=== PATIENT | male | born 1965 | race Hispanic/Latino ===

== ENCOUNTER 2017-11-03 10:35 | Inpatient (IN) | payer BC ==
[2017-11-03 10:58] VITALS: BMI 39.9
--- NOTE | 2017-11-03 11:06 | ED PDOC ---
Arrival/HPI - General Time Seen by Provider: 11/03/17 10:56 Historian: Patient, Spouse - History of Present Illness Narrative History of Present Illness (Text): 11/03/17 11:02 you were treated in the ED today for your defibrillator going off 7 times today otherwise without any nausea/vomiting/headache/dizziness/difficulty breathing/ chest pain/abdomen pain/numbness/tingling/loss of limb function/pain with urination. Time/Duration: Other (today) Symptom Course: Resolved Quality: Aching Severity Level: 2 Context: Home Past Medical History - Provider Review Nursing Documentation Reviewed: Yes - Travel History Have you recently traveled outside [place] w/in the past 3 mons?: No Family/Social History - Physician Review Nursing Documentation Reviewed: Yes Family/Social History: No Known Family HX Allergies/Home Meds Allergies/Adverse Reactions: Allergies Sulfa (Sulfonamide Antibiotics) Allergy (Verified 11/03/17 10:58) ITCHING Review of Systems - Physician Review All systems were reviewed & negative as marked: Yes - Review of Systems Respiratory: absent: SOB Cardiovascular: absent: Chest Pain Gastrointestinal: absent: Abdominal Pain, Nausea, Vomiting Genitourinary Male: absent: Dysuria Neurological: absent: Headache, Dizziness, Focal Weakness Physical Exam Vital Signs Reviewed: Yes Vital Signs Temp Pulse Resp BP Pulse Ox 11/03/17 11:54 101.9 F H 11/03/17 10:43 97.3 F L 148 H 22 109/52 L 88 L Temperature: Afebrile Blood Pressure: Hypotensive Pulse: Tachycardic Respiratory Rate: Normal Appearance: Positive for: Well-Appearing, Non-Toxic, Comfortable Pain Distress: None Mental Status: Positive for: Alert and Oriented X 3 - Systems Exam Head: Present: Atraumatic, Normocephalic Pupils: Present: PERRL Extroacular Muscles: Present: EOMI Conjunctiva: Present: Normal Mouth: Present: Moist Mucous Membranes Neck: Present: Normal Range of Motion Respiratory/Chest: Present: Clear to Auscultation, Good Air Exchange. No: Respiratory Distress, Accessory Muscle Use Cardiovascular: Present: Regular Rate and Rhythm, Normal S1, S2. No: Murmurs Abdomen: Present: Normal Bowel Sounds. No: Tenderness, Distention, Peritoneal Signs Back: Present: Normal Inspection, Other (no sign of spinal tenderness or erythema/fluctuance/crepitus.) Upper Extremity: Present: Normal Inspection. No: Cyanosis, Edema Lower Extremity: Present: Normal Inspection. No: Edema Neurological: Present: GCS=15, CN II-XII Intact, Speech Normal Skin: Present: Warm, Dry, Normal Color. No: Rashes Psychiatric: Present: Alert, Oriented x 3, Normal Insight, Normal Concentration Medical Decision Making ED Course and Treatment: 11/03/17 11:02 you were treated in the ED today for your defibrillator going off 7 times today otherwise without any nausea/vomiting/headache/dizziness/difficulty breathing/ chest pain/abdomen pain/numbness/tingling/loss of limb function/pain with urination. You were otherwise breathing easily, pink/moist lips, good strength/ sensation, alert/oriented, walking easily, clear lungs, no abdomen tenderness, no fever temp 97.3, heart rate 148, stable breathing rate 22, mild low oxygen level 88% room air, stable blood pressure 109/52 which we recommend repeat in 2- 3 days primary care office to determine further treatment, you have blood tests no infection count 6.2, stable blood level hemoglobin 11/platelets 105, heart blood test 2.92, urine test no acute sign of infection, lumbar spine ct disc disease and degenerative changes, chest xray no active disease, ECG sinus tachycardia at 148 BPM, ivf, zosyn, tylenol done in the ED. EKG shows sinus tachycardia at 148 BPM. Interpreted by me. Report Date : 11/03/2017 12:19:34 PROCEDURE: CT Lumbar Spine without contrast Dictator : Myra Santamaria MD IMPRESSION: Mild grade 1 anterior spondylolisthesis of L4 relative to L5 noted. Moderate degenerative changes associated with multilevel posterior osteophyte disc bulge complex. Moderate size disc protrusion at L4-L5 associated with posterior ligament and facet joint hypertrophy which resulting in moderate spinal and neural foraminal narrowing. If clinically warranted and if not contraindicated further assessment by MRI may be obtained. Report Date : 11/03/2017 12:45:28 PROCEDURE: CHEST RADIOGRAPH, 1 VIEW Dictator : Abdias Bullard MD IMPRESSION: No active disease. 11/03/17 13:37 Patient was given Aspirin. temp 101.9 sepsis code, ivf, zosyn. 11/03/17 13:58 11/03/17 14:00 11/03/17 14:02 11/03/17 14:04 11/03/17 14:14 d/w Dr. matute and will admit. d/w Dr. Salinas cardiology who stated admit to icu, contact electrophysiology for ppm/defibrillator interrogation. 11/03/17 14:17 Reassessment Condition: Re-examined, Unchanged - Lab Interpretations Lab Results: 11/03/17 12:15 11/03/17 12:15 Lab Results 11/03/17 12:15: pO2 43, VBG pH 7.39, VBG pCO2 37.0 L, VBG HCO3 22.4, VBG Total CO2 23.5, VBG O2 Sat (Calc) 82.7 H, VBG Base Excess -2.2 L, VBG Potassium 4.4, Sodium 132.0, Chloride 100.0, Glucose 318 H, Lactate 2.6 H, FiO2 21.0, Venous Blood Potassium 4.4 11/03/17 12:15: Influenza Typ A,B (EIA) Negative for flu a/b 11/03/17 12:15: Sodium 134, Chloride 101, Potassium 4.2, Carbon Dioxide 20 L, Anion Gap 17, BUN 32 H, Creatinine 1.4, Est GFR ( Amer) > 60, Est GFR ( Non-Af Amer) 53, Random Glucose 299 H, Calcium 9.3, Magnesium 2.6 H, Total Bilirubin 0.9, AST 72 H, ALT 79 H, Alkaline Phosphatase 64, Lactate Dehydrogenase 484, Total Creatine Kinase 95, Troponin I 2.92 H*, Total Protein 6.7, Albumin 3.6, Globulin 3.1, Albumin/Globulin Ratio 1.2 11/03/17 12:15: Urine Color Yellow, Urine Appearance Clear, Urine pH 6.5, Ur Specific [place] 1.010, Urine Protein 30 H, Urine Glucose (UA) >=1000, Urine Ketones Negative, Urine Blood Large H, Urine Nitrate Negative, Urine Bilirubin Negative, Urine Urobilinogen 0.2, Ur Leukocyte Esterase Negative, Urine RBC 10 - 15, Urine WBC 0 - 2, Ur Epithelial Cells None, Urine Bacteria Many, Urine Other Uyeast 11/03/17 12:15: PT 13.9 H, INR 1.20 H, APTT 35.5 11/03/17 12:15: WBC 6.2, RBC 5.74, Hgb 11.6 L, Hct 35.9 L, MCV 62.5 L, MCH 20.2 L, MCHC 32.3, RDW 18.0 H, Plt Count 105 L, Gran % 90.2 H, Lymph % (Auto) 4.6 L, Green % (Auto) 5.0, Eos % (Auto) 0.0 L, Baso % (Auto) 0.2, Gran # 5.63, Lymph # ( Auto) 0.3 L, Green # (Auto) 0.3, Eos # (Auto) 0.0, Baso # (Auto) 0.01, Neutrophils % (Manual) 91 H, Lymphocytes % (Manual) 5 L, Monocytes % (Manual) 4 , Platelet Evaluation Normal, Anisocytosis (manual) 1+, Microcytosis (manual) 2+ I have reviewed the lab results: Yes - RAD Interpretation Radiology Orders: 11/03/17 11:03 LUMBAR SPINE W/O CONTRAST [CT] Stat 11/03/17 11:04 CHEST ONE VIEW [RAD] Stat Shipping Hand: Radiologist (see mdm) - EKG Interpretation Interpreted by ED Physician: Yes (sinus tachycardia) Type: 12 lead EKG - Medication Orders Current Medication Orders: Discontinued Medications Acetaminophen (Tylenol 325mg Tab) 975 mg PO STAT STA Stop: 11/03/17 13:25 Last Admin: 11/03/17 13:51 Dose: 975 mg Aspirin (Aspirin Chewable) 324 mg PO STAT STA Stop: 11/03/17 13:38 Last Admin: 11/03/17 13:51 Dose: 324 mg Piperacillin Sod/Tazobactam Sod (Zosyn 4.5 Gm In Ns 100ml) 4.5 gm in 100 mls @ 200 mls/hr IVPB STAT STA PRN Reason: Protocol Stop: 11/03/17 13:54 Last Admin: 11/03/17 13:52 Dose: 200 mls/hr eMAR Start Stop Document 11/03/17 13:52 HI (Rec: 11/03/17 13:52 HI [facility] [id number]) Intravenous Solution Start Date 11/03/17 Start Time 13:52 Sodium Chloride (Sodium Chloride 0.9%) 1,000 mls @ 999 mls/hr IV .Q1H1M STA Stop: 11/03/17 14:25 Last Admin: 11/03/17 13:52 Dose: 999 mls/hr eMAR Start Stop Document 11/03/17 13:52 HI (Rec: 11/03/17 13:52 HI [facility] [id number]) Intravenous Solution Start Date 11/03/17 Start Time 13:52 Disposition/Present on Arrival - Present on Arrival Any Indicators Present on Arrival: No - Disposition Have Diagnosis and Disposition been Completed?: Yes Diagnosis: Fever Disposition: HOSPITALIZED Disposition Time: 14:26 Patient Plan: ICU Condition: SERIOUS
--- NOTE | 2017-11-03 12:21 | CT ---
PROCEDURE: CT Lumbar Spine without contrast HISTORY: 52M, lumbar injection with pain/fever COMPARISON: Comparison is made with the previous study dated 10/14/2012 TECHNIQUE: Axial computed tomography images were obtained of the lumbar spine without the use of intravenous contrast. Coronal and sagittal reformatted images were created and reviewed. Radiation dose: Total exam DLP = 1828.71 mGy-cm. This CT exam was performed using one or more of the following dose reduction techniques: Automated exposure control, adjustment of the mA and/or kV according to patient size, and/or use of iterative reconstruction technique. FINDINGS: VERTEBRAE: No evidence of acute fracture or destructive bony lesion. There is grade 1 approximately 5 millimeter anterior spondylolisthesis of L4 relative to L5. DISCS/SPINAL CANAL/NEURAL FORAMINA: L1-2: Small posterior osteophyte disc bulge complex associated with mild posterior ligament hypertrophy which resulting in mild spinal stenosis. L2-3: Posterior osteophyte and ligament calcification noted associated with mild posterior ligament and facet joint hypertrophy which resulting in mild spinal stenosis. There is mild bilateral neural foraminal narrowing right more than left. L3-4: Posterior osteophyte disc bulge complex is noted associated with posterior ligament hypertrophy which resulted mild spinal stenosis. L4-5: Moderate size ankle for disc protrusion associated with significant posterior ligament and facet joint hypertrophy which resulting in moderate spinal and neural foraminal narrowing. L5-S1: Small central disc protrusion associated with posterior ligament hypertrophy which resulting in mild spinal stenosis. PARASPINAL SOFT TISSUES: Unremarkable. OTHER FINDINGS: None. IMPRESSION: Mild grade 1 anterior spondylolisthesis of L4 relative to L5 noted. Moderate degenerative changes associated with multilevel posterior osteophyte disc bulge complex. Moderate size disc protrusion at L4-L5 associated with posterior ligament and facet joint hypertrophy which resulting in moderate spinal and neural foraminal narrowing. If clinically warranted and if not contraindicated further assessment by MRI may be obtained.
[2017-11-03 12:38] LABS: BASO # 0.01 K/mm3 (0.0-2.0); BASO % 0.2 % (0.0-3.0); GRAN # 5.63 (1.4-6.5); GRAN % 90.2 % (50.0-68.0); HEMOGLOBIN 11.6 g/dL (14.0-18.0); LYMPH # 0.3 (1.2-3.4); LYMPH % 4.6 % (22.0-35.0); MEAN CELL VOLUME 62.5 fl (80.0-105.0); MEAN CORPUSCULAR HEMOGLOBIN 20.2 pg (25.0-35.0); MEAN CORPUSCULAR HGB CONC 32.3 g/dl (31.0-37.0); MONO # 0.3 (0.1-0.6); PLATELET COUNT 105 10^3/uL (120.0-450.0); RBC 5.74 10^6/uL (3.5-6.1); VENOUS BLOOD GAS BASE EXCESS -2.2 mmol/L (0.0-2.0); VENOUS BLOOD GAS PO2 43 mm/Hg (30-55); VENOUS BLOOD PH 7.39 (7.32-7.43); WHITE BLOOD COUNT 6.2 10^3/ul (4.5-11.0)
[2017-11-03 12:39] LABS: PH,URINE 6.5 (4.7-8.0); URINE BILIRUBIN NEGATIVE (NEGATIVE); URINE BLOOD LARGE (NEGATIVE); URINE GLUCOSE (UA) >=1000 mg/dL (NEGATIVE); URINE LEUKOCYTE ESTERASE NEGATIVE Leu/uL (NEGATIVE); URINE NITRATE NEGATIVE (NEGATIVE); URINE PROTEIN 30 mg/dL (<30 mg/dL); URINE UROBILINOGEN 0.2 E.U./dL (<1 E.U./dL)
[2017-11-03 12:41] LABS: URINE APPEARANCE CLEAR (CLEAR); URINE COLOR YELLOW (YELLOW)
--- NOTE | 2017-11-03 12:47 | RAD ---
PROCEDURE: CHEST RADIOGRAPH, 1 VIEW HISTORY: 52yoM, defibrilator firing COMPARISON: None available. FINDINGS: LUNGS: Clear. PLEURA: No pneumothorax or pleural fluid seen. CARDIOVASCULAR: Mild cardiomegaly. Pacemaker OSSEOUS STRUCTURES: No significant abnormalities. VISUALIZED UPPER ABDOMEN: Normal. OTHER FINDINGS: None. IMPRESSION: No active disease.
[2017-11-03 12:48] LABS: ALB/GLOB RATIO 1.2 (1.1-1.8); ALBUMIN 3.6 g/dL (3.0-4.8); ALT/SGPT 79 U/L (7-56); AST/SGOT 72 U/L (17-59); BLOOD UREA NITROGEN 32 mg/dL (7-21); CALCIUM 9.3 mg/dL (8.4-10.5); GFR AFRICAN-AMERICAN > 60; GFR NON-AFRICAN AMERICAN 53; MAGNESIUM 2.6 mg/dL (1.7-2.2)
[2017-11-03 12:52] LABS: INR 1.2 (0.93-1.08); PARTIAL THROMBOPLASTIN TIME 35.5 Seconds (25.1-36.5); PROTHROMBIN TIME 13.9 SECONDS (9.4-12.5)
[2017-11-03 12:59] LABS: URINE WBC 0 - 2 /hpf (0-6)
[2017-11-03 13:00] LABS: URINE BACTERIA MANY (NEG)
[2017-11-03 13:19] LABS: LYMPHOCYTE 5 % (22.0-35.0); MONOCYTE 4 % (1.0-6.0); NEUTROPHIL 91 % (50.0-70.0); PLATELET ESTIMATE NORMAL (NORMAL)
[2017-11-03 13:20] LABS: ANISOCYTOSIS 1+; MICROCYTOSIS 2+
[2017-11-03 13:23] LABS: TROPONIN I 2.92 ng/mL
[2017-11-03] MEDS ORDERED: Piperacill/Tazo 4.5gm in NS 4.5 GM/100 ML BAG IVPB STA (13:25)
[2017-11-03] MEDS ORDERED: Sodium Chloride 0.9% 1,000 ML IV STA (13:25)
--- NOTE | 2017-11-03 15:06 | CP.PCM.CON ---
History of Present Illness - History of Present Illness History of Present Illness: Critical Consult Note HPI: Patient is 52yo male with PMhx of obesity, DM, HTN, Cardiomyopathy EF 40% s/p AICD ([place]), presents with AICD shock. Pt reports he was walking at home when all of sudden he felt an ICD shock follow by 7 more shocks. Pt denies preceding chest pain, sob, palpitations, CEDENO, dizziness. Pt endorses fever, since Friday, denies sick contacts, cough, sob, cp, N/V/D. No other constitutional symptoms. PMHx as above PSHx as above Allergies NKDA Meds as per EMR ROS as above FHx NC Review of Systems - Review of Systems Review of Systems: as per HPI Past Patient History - Past Social History Smoking Status: Never Smoked - CARDIAC Hx Pacemaker: Yes (2008) - PULMONARY Hx Sleep Apnea: Yes - ENDOCRINE/METABOLIC Hx Diabetes Mellitus Type 2: Yes - PSYCHIATRIC Hx Substance Use: No - SURGICAL HISTORY Hx Gastric Bypass Surgery: Yes Hx Herniorrhaphy: Yes Other/Comment: wrist surgery - ANESTHESIA Hx Anesthesia: Yes Hx Anesthesia Reactions: No Hx Malignant Hyperthermia: No Meds Allergies/Adverse Reactions: Allergies Allergy/AdvReac Type Severity Reaction Status Date / Time Sulfa (Sulfonamide Allergy ITCHING Verified 11/03/17 10:58 Antibiotics) - Medications Medications: Current Medications Sodium Chloride (Sodium Chloride 0.9%) 1,000 mls @ 100 mls/hr IV .Q10H JONG Physical Exam - Constitutional Appears: Non-toxic, No Acute Distress - Head Exam Head Exam: NORMAL INSPECTION - Eye Exam Eye Exam: Normal appearance - ENT Exam ENT Exam: Mucous Membranes Moist - Respiratory Exam Respiratory Exam: Clear to Auscultation Bilateral, NORMAL BREATHING PATTERN - Cardiovascular Exam Cardiovascular Exam: REGULAR RHYTHM, +S1, +S2 - GI/Abdominal Exam GI & Abdominal Exam: Normal Bowel Sounds, Soft - Extremities Exam Extremities exam: Positive for: normal inspection - Neurological Exam Neurological exam: Alert, Oriented x3 - Psychiatric Exam Psychiatric exam: Anxious - Skin Skin Exam: Normal Color, Warm Results - Vital Signs Recent Vital Signs: Last Vital Signs Temp 101.9 F H 11/03/17 11:54 Pulse 148 H 11/03/17 10:43 Resp 22 11/03/17 10:43 BP 109/52 L 11/03/17 10:43 Pulse Ox 88 L 11/03/17 10:43 - Labs Result Diagrams: 11/03/17 12:15 11/03/17 12:15 Labs: Laboratory Results - last 24 hr 11/03/17 11/03/17 11/03/17 12:15 12:15 12:15 WBC 6.2 RBC 5.74 Hgb 11.6 L Hct 35.9 L MCV 62.5 L MCH 20.2 L MCHC 32.3 RDW 18.0 H Plt Count 105 L Gran % 90.2 H Lymph % (Auto) 4.6 L Fisher % (Auto) 5.0 Eos % (Auto) 0.0 L Baso % (Auto) 0.2 Gran # 5.63 Lymph # (Auto) 0.3 L Fisher # (Auto) 0.3 Eos # (Auto) 0.0 Baso # (Auto) 0.01 Neutrophils % (Manual) 91 H Lymphocytes % (Manual) 5 L Monocytes % (Manual) 4 Platelet Evaluation Normal Anisocytosis (manual) 1+ Microcytosis (manual) 2+ PT 13.9 H INR 1.20 H APTT 35.5 pO2 VBG pH VBG pCO2 VBG HCO3 VBG Total CO2 VBG O2 Sat (Calc) VBG Base Excess VBG Potassium Sodium Chloride Glucose Lactate FiO2 Potassium Carbon Dioxide Anion Gap BUN Creatinine Est GFR ( Amer) Est GFR (Non-Af Amer) Random Glucose Calcium Magnesium Total Bilirubin AST ALT Alkaline Phosphatase Lactate Dehydrogenase Total Creatine Kinase Troponin I Total Protein Albumin Globulin Albumin/Globulin Ratio Venous Blood Potassium Urine Color Yellow Urine Appearance Clear Urine pH 6.5 Ur Specific [employer] [place] 1.010 Urine Protein 30 H Urine Glucose (UA) >=1000 Urine Ketones Negative Urine Blood Large H Urine Nitrate Negative Urine Bilirubin Negative Urine Urobilinogen 0.2 Ur Leukocyte Esterase Negative Urine RBC 10 - 15 Urine WBC 0 - 2 Ur Epithelial Cells None Urine Bacteria Many Urine Other Uyeast Influenza Typ A,B (EIA) 11/03/17 11/03/17 11/03/17 12:15 12:15 12:15 WBC RBC Hgb Hct MCV MCH MCHC RDW Plt Count Gran % Lymph % (Auto) Fisher % (Auto) Eos % (Auto) Baso % (Auto) Gran # Lymph # (Auto) Fisher # (Auto) Eos # (Auto) Baso # (Auto) Neutrophils % (Manual) Lymphocytes % (Manual) Monocytes % (Manual) Platelet Evaluation Anisocytosis (manual) Microcytosis (manual) PT INR APTT pO2 43 VBG pH 7.39 VBG pCO2 37.0 L VBG HCO3 22.4 VBG Total CO2 23.5 VBG O2 Sat (Calc) 82.7 H VBG Base Excess -2.2 L VBG Potassium 4.4 Sodium 134 132.0 Chloride 101 100.0 Glucose 318 H Lactate 2.6 H FiO2 21.0 Potassium 4.2 Carbon Dioxide 20 L Anion Gap 17 BUN 32 H Creatinine 1.4 Est GFR ( Amer) > 60 Est GFR (Non-Af Amer) 53 Random Glucose 299 H Calcium 9.3 Magnesium 2.6 H Total Bilirubin 0.9 AST 72 H ALT 79 H Alkaline Phosphatase 64 Lactate Dehydrogenase 484 Total Creatine Kinase 95 Troponin I 2.92 H* Total Protein 6.7 Albumin 3.6 Globulin 3.1 Albumin/Globulin Ratio 1.2 Venous Blood Potassium 4.4 Urine Color Urine Appearance Urine pH Ur Specific [employer] [place] Urine Protein Urine Glucose (UA) Urine Ketones Urine Blood Urine Nitrate Urine Bilirubin Urine Urobilinogen Ur Leukocyte Esterase Urine RBC Urine WBC Ur Epithelial Cells Urine Bacteria Urine Other Influenza Typ A,B (EIA) Negative for flu a/b Assessment & Plan - Assessment and Plan (Free Text) Assessment: 52yo male with AICD shocks and fever AICD shock Fever GUSTAVO HTN CM, EF 40% Obesity - currently afebrile, HD stable, comfortable in NAD, in NSR, no further shocks while in hospital - Denies CP, SOB, Dysuria, N/V/D, abd pain, cough - Elevated troponin possibly due to AICD shocks Recommend: - supp o2 as needed - camacho culture, check procal, UCx, BCx - Rocephin, Azithro - resume home meds - defer A/C to cardiology, elevated troponin - repeat cardiac enzymes - EP consult, AICD interrogation - ECHO - CPAP at night PS 11 - GI ppx - DVT ppx - Admit to MICU stable
[2017-11-03] MEDS ORDERED: cefTRIAXone 1 gm 1 GM/100 ML BAG IVPB SCH (15:30)
[2017-11-03 15:50] LABS: VENOUS BLOOD GAS PO2 47 mm/Hg (30-55); VENOUS BLOOD PH 7.36 (7.32-7.43)
--- NOTE | 2017-11-03 16:33 | CARD ---
APPROVED REPORT EKG Measurement Heart [id number] <Conclusion> Sinus tachycardia Otherwise normal ECG
[2017-11-03] MEDS: Sodium Chloride 0.9% 1,000 ML IV SCH (17:00)
[2017-11-03] MEDS: Azithromycin 500MG/NS 250ml 500 MG/250 ML BAG IVPB SCH (17:58)
[2017-11-03] MEDS: Oxycodone/Acetaminophen 5/325 mg Tab PO PRN (18:59)
[2017-11-03 19:30] LABS: TROPONIN I 5.06 ng/mL
--- NOTE | 2017-11-03 21:05 | PCM.SEPTIC ---
<Barrington Garzon - Last Filed: 11/03/17 21:04> Sepsis Progress Note - Reassessment Type Date of Evaluation: 11/03/17 Time of Evaluation: 16:15 Reassessment Type: Non-invasive reassessment - Non Invasive Reassessment Were the most recent vital sign reviewed: Yes Vital Sign (Latest): Temp Pulse Resp BP Pulse Ox 99.1 F 94 H 34 H 83/50 L 95 11/03/17 15:28 11/03/17 17:53 11/03/17 16:29 11/03/17 17:53 11/03/17 16:29 Cardiovascular: Yes: Tachycardia Respiratory: Yes: Normal Breath Sounds Capillary Refill: Normal (Less than 2 sec) Skin: Normal Color <Erik Raymond - Last Filed: 11/10/17 20:53> Sepsis Progress Note - Non Invasive Reassessment Vital Sign (Latest): Temp Pulse Resp BP Pulse Ox 98.1 F 110 H 20 137/78 95 11/07/17 17:26 11/07/17 18:00 11/07/17 17:26 11/07/17 17:26 11/07/17 17:26 Type performed: Echocardiogram, Trans-esophageal Echo Was a passive leg raise performed or was a fluid challenge performed within 6 hrs of the initial fluid bolus: Yes Passive Leg Raise Result: Not Applicable Fluid Challenge performed: No
[2017-11-03] MEDS ORDERED: Pneumococcal 23-Valent Vaccine IM ONE (21:26)
[2017-11-03] MEDS ORDERED: Influenza Vaccine 60 mcg/0.5 mL SYR (4YR UP) IM ONE (21:26)
--- NOTE | 2017-11-03 21:35 | CARD ---
APPROVED REPORT EXAM: Two-dimensional and M-mode echocardiogram with Doppler and color Doppler. INDICATION VT 2D DIMENSIONS Left Atrium (2D)4.9 (1.6-4.0cm)IVSd1.3 (0.7-1.1cm) LVDd6.0 (3.9-5.9cm)PWd1.3 (0.7-1.1cm) LVEF (%)30.0 (>50%) M-Mode DIMENSIONS Aortic Root3.30 (2.2-3.7cm)Aortic Cusp Exc.1.90 (1.5-2.0cm) Aortic Valve AoV Peak Xfxxfwwf330.0cm/Tc Peak GR.6mmHg Mitral Valve MV E Zcblbuwd96.3cm/sMV A Qjitnlvm03.6cm/sE/A ratio0.8 TDI Lateral E' Peak V7.80cm/sMedial E' Peak V5.75cm/sE/Lateral E'7.0 E/Medial E'9.4 Pulmonary Valve PV Peak Sznpqyfx09.1cm/sPV Peak Grad.2mmHg Tricuspid Valve TR Peak Eekxkscz747os/sRAP [id number] Peak Gr.20mmHg [id number] LEFT VENTRICLE The Left Ventricle is mildly dilated. There is mild concentric left ventricular hypertrophy. The systolic function is severely impaired. There is global hypokinesis of the left ventricle. Transmitral Doppler flow pattern is Grade I-abnormal relaxation pattern. No left ventricle thrombus noted on this study. There is no ventricular septal defect visualized. RIGHT VENTRICLE The right ventricle is normal size. There is normal right ventricular wall thickness. There is a pacemaker lead in the right ventricle. ATRIA The left atrium is mildly dilated. The right atrium is mildly dilated. AORTIC VALVE The aortic valve is not well visualized. No aortic regurgitation is present. There is no aortic valvular stenosis. MITRAL VALVE The mitral valve is normal in structure. There is no mitral valve regurgitation noted. There is no mitral valve stenosis. TRICUSPID VALVE The tricuspid valve is normal in structure. GREAT VESSELS The aortic root is normal in size. PERICARDIAL EFFUSION There is a trace circumferential pericardial effusion. <Conclusion> The Left Ventricle is mildly dilated. There is mild concentric left ventricular hypertrophy. There is global hypokinesis of the left ventricle. Transmitral Doppler flow pattern is Grade I-abnormal relaxation pattern. No left ventricle thrombus noted on this study.
[2017-11-03] MEDS: Insulin Reg-LOW-Coverage SC SCH ×2 (21:58→22:21)
[2017-11-04 00:25] LABS: TROPONIN I 3.5 ng/mL
--- NOTE | 2017-11-04 02:33 | CON ---
DATE: CARDIOLOGY CONSULTATION REASON FOR CONSULTATION: Recurrent defibrillator discharge. HISTORY OF PRESENT ILLNESS: Patient is a 52-year-old male who has a history of nonischemic cardiomyopathy, status post ICD placement in 2008, follows with his boiler assistant operator in [place] and then in [facility]. The optometric coordinator's name is Dr. Pena. The patient had, a few days ago, a nerve block injection to lower back in outpatient facility . Patient this morning experienced at least nine discharges from the defibrillator that knocked him down. He slipped to the floor, but sustained no injury. Patient is currently feeling weak, anxious, and exhausted. Patient did report fever and chills for the past few days. Patient denies any retrosternal chest pain. According to the , the patient's ejection fraction in 2008 was 15%; however ,over time this improved to 45%. SOCIAL HISTORY: Nonsmoker. MEDICATIONS: Patient's home medications include Coreg 6.25 mg twice a day and enalapril. REVIEW OF SYSTEMS: No vomiting, diarrhea. Patient did experience fever and chills. No retrosternal chest pain. Patient did not experience syncope before discharge from the defibrillator, but he did feel weak and dizzy. PHYSICAL EXAMINATION: GENERAL: Patient is moderately obese middle-aged male who is does not appear to be in acute distress. VITAL SIGNS: Blood pressure 109/52, heart rate 148, temperature 101.9, respirations 22. HEENT: Normocephalic. CHEST: Bibasilar rhonchi and diminished breath sounds over the bases. HEART: S1, S2, regular. ABDOMEN: Soft. EXTREMITIES: 1+ pitting edema. LABORATORY DATA: Hemoglobin and hematocrit 11.6 and 35.9, white count 6.2, platelet count 105,000. SMA-7: Sodium 134, potassium 4.2, chloride 101, CO2 of 20, glucose is 299, BUN 32, creatinine 1.4. Troponin 2.92. INR is 1.2. Influenza type A and B are negative. EKG reveals sinus tachycardia with PVC at rate 142. Chest x-ray revealed cardiomegaly, scattered bilateral alveolar infiltrate. CAT scan of the lumbosacral spine revealed mild grade 1 anterior spondylolysis of L4-L5. Moderate degenerative changes associated to multilevel posterior osteophytic disk bulge complex, moderate disk protrusion at L4-L5 posterior ligament and facet joint hypertrophy, which result in moderate spinal and neural foramina narrowing. ASSESSMENT: 1. Recurrent discharge from the defibrillator, concern of recurrent tachycardia; however, rapid atrial fibrillation cannot be excluded or even sinus tachycardia or supraventricular tachycardia. 2. Mildly elevated troponin, most likely related to the recurrent frequent recent defibrillations. 3. Congestive heart failure. 4. Rule out underlying pneumonia. RECOMMENDATIONS: Continue current IV fluid. I did discuss the case with Dr. Jorge Mitchell, the boiler assistant operator who will reevaluate the patient. In the meantime, communications have been done to contact the [employer] for ICD analysis. In the meantime, the patient is being evaluated by the supervisor telephone answering service to be observed in the ICU. I will obtain bedside echocardiogram. Resume Coreg at 12.5 mg twice day, enalapril 2.5 mg once a day. Obtain urine for drug screen and two sets of blood culture. Navid Salinas MD
[2017-11-04] MEDS: Sodium Chloride 0.9% 1,000 ML IV SCH (05:57)
[2017-11-04 06:01] LABS: HEMOGLOBIN 10.5 g/dL (14.0-18.0); MEAN CORPUSCULAR HGB CONC 32.3 g/dl (31.0-37.0); PLATELET COUNT 109 10^3/uL (120.0-450.0); RBC 5.24 10^6/uL (3.5-6.1); RED CELL DISTRIBUTION WIDTH 17.8 % (11.5-14.5); WHITE BLOOD COUNT 7.6 10^3/ul (4.5-11.0)
[2017-11-04 06:06] LABS: BARBITURATES, UR NEGATIVE (NEGATIVE); BENZODIAZEPINES, UR NEGATIVE (NEGATIVE); OPIATES, UR NEGATIVE (NEGATIVE); PHENCYCLIDINE, UR NEGATIVE (NEGATIVE)
--- NOTE | 2017-11-04 06:15 | CON ---
INPATIENT ELECTROPHYSIOLOGY CONSULTATION DATE: 11/03/2017 LOCATION: The patient is seen in the ICU. REASON FOR EVALUATION: 1. Automatic implantable cardioverter-defibrillator status post shock. 2. Dilated cardiomyopathy. 3. Tachycardia. HISTORY OF PRESENT ILLNESS: Mr. Rafa Dupree is a 52-year-old male with past medical history significant for hypertension, diabetes, obesity, dilated cardiomyopathy, EF of 40%, status post single-lead [employer] AICD approximately eight years ago, who presents to [facility], status post AICD shock. The patient reports not feeling well for the last day or two with increased fever, weakness, and shivering. The patient had tried to stay in bed and rest. He did manage to get up and walk towards the bathroom at which point the patient felt as though the AICD shocked him. This was followed by repeated episodes of shock numbering 7. The patient denied any prior cardiac symptoms such as chest pain, shortness of breath, palpitation, dizziness, or lightheadedness. He follows up regularly with Dr. Pena from a defibrillator standpoint. PAST MEDICAL HISTORY: As mentioned above. Also includes obstructive sleep apnea, diabetes, history of gastric bypass surgery. PAST SURGICAL HISTORY: As mentioned above. Pacemaker in 2008. ALLERGIES: ALLERGIC TO SULFA, WHICH RESULTS IN ITCHING. MEDICATIONS AT HOME: Includes carvedilol 12.5 mg twice a day, losartan 25 mg p.o. daily, ondansetron 4 mg IV q. 4 hours p.r.n. nausea, Protonix 40 mg p.o. daily, and azithromycin 500 mg in 250 mL at 167 mL per hour. SOCIAL HISTORY: Never smoked. REVIEW OF SYSTEMS: As per that in the history of present illness. Further history is gleaned from the electronic medical records as well as from his , who is at the bedside. PHYSICAL EXAMINATION: GENERAL: In general, he is a pleasant, somewhat anxious-appearing obese male in no acute distress, able to speak in complete sentences. VITAL SIGNS: On examination, temperature is 101.9, pulse of 98, respirations of 22, blood pressure is 109/52. HEENT: Examination of his head is normocephalic and atraumatic. There is no gareth facial asymmetry. He does appear somewhat plethoric. NECK: Supple. Jugular venous distention is difficult to appreciate secondary to body habitus. CHEST: Clear to auscultation bilaterally. CARDIOVASCULAR: Regular rate and rhythm, S1 and S2. No S3 or S4. ABDOMEN: Soft, obese, and nontender. Positive bowel sounds. EXTREMITIES: No cyanosis, clubbing, or edema. NEUROLOGIC: The patient is alert and oriented x3. MUSCULOSKELETAL: The left pectoral area is notable for a well-seated submuscular AICD. Of note, the patient has multiple elaborate tattoos. LABORATORY DATA: On review of relevant lab work, the patient has a white count of 6.2 and H and H of 11.6 and 35.9. The patient also has a platelet count of 105. PT of 13.9 and INR of 1.2. Chest x-ray with findings of mild cardiomegaly. No other active disease is revealed. Echocardiogram has been done, but yet to be read. On review of the patient's device interrogation, the patient has a [employer] Current VRRF device, initially implanted by Dr. Dieter Pena. Battery life appears to be satisfactory with longevity estimated to be 1.5 years. Capture threshold in the ventricle is within normal limits. The patient initially had a VT1 zone at 134 beats per minute, and VT2 therapy is set at 176, which initially was treated with 3 rounds of ATP followed by 24 joules shock, followed by 34 joules shock, followed by 34 joules shock x2. VF zone is 206 beats per minute. The patient'sepisode started this morning, 11/03/2017 at 09:22 a.m. The patient is noted to be in a narrow complex tachycardia at approximately 136 beats per minute. The patient remains in this narrow- complex tachycardia, which is likely a physiologic sinus tachycardia over a period of 2 minutes at which point monitor's own timeout occurs. The patient undergoes VT2 therapy at which point the patient had undergone ATP therapy with little or no success. The patient then received a series of shocks, all of which did pretty much nothing for his tachycardia being that it is sinus. EKG which was done at this morning as well shows sinus tachycardia at 148 beats per minute, relatively normal Q-wave morphology, AL interval is 136 milliseconds. QRS duration is 98. There is relatively low-amplitude R waves in the limb leads, which may be secondary to body habitus. ASSESSMENT: 1. [employer] single-chamber automatic implantable cardioverter-defibrillator status post shock following time-out of narrow-complex tachycardia in the monitor zone. The patient underwent interrogation of his device, time-out of the monitor zone has been removed; therefore, the patient will only receive therapy for tachycardia in the VT2 zone, which is initiated at 126 beats per minute. The patient remains somewhat apprehensive about getting shocked again. The patient is to follow up with Dr. Pena, his outpatient slubber frame changer. 2. Dilated cardiomyopathy, ejection fraction of 40%. A 2D echocardiogram is yet to be read. The patient should follow up with Dr. Pena. 3. Tachycardia, likely multifactorial secondary to fevers, likely underlying infection, as well as some degree of anemia. The patient will be treated for those following reasons. 4. Anemia, which will be addressed by the Primary/Critical Care Team. Thank you for allowing me to participate in the care of your patient. Please do not hesitate to call for any questions in regards to his care. Jorge Mitchell MD [id number]
[2017-11-04 06:26] LABS: INR 1.08 (0.93-1.08); PROTHROMBIN TIME 12.4 SECONDS (9.4-12.5)
--- NOTE | 2017-11-04 07:09 | CP.CCUPN ---
<Zoey Jiménez - Last Filed: 11/04/17 10:49> CCU Subjective - Physician Review Subjective (Free Text): 11/04/17 09:49 Patient was admitted overnight after being shocked by his ACID 10 times. Patient 's AICD was interrogated in the ED, and the rate was adjusted. Patient was also seen by the fig caprifier. Overnight there were no events. No shock since admission. Patient this AM, denies chest pain, sob, nausea, vomiting or diarrhea. c/o right sided flank pain, denies dysurea. Patient admits to chills, and fever, had tmax of 100.8 this morning. Critical Care Time Spent (in minutes): 45 CCU Objective - Vital Signs / Intake & Output Vital Signs (Last 4 hours): Vital Signs Pulse Resp BP Pulse Ox 11/04/17 06:30 95 H 19 88 L 11/04/17 06:20 91 H 20 89 L 11/04/17 06:10 93 H 22 88 L 11/04/17 06:00 93 H 22 95/54 L 90 L 11/04/17 05:50 100 H 28 H 90 L 11/04/17 05:40 93 H 17 91 L 11/04/17 05:30 98 H 92 L 11/04/17 05:20 98 H 25 H 91 L 11/04/17 05:10 98 H 22 91 L 11/04/17 05:00 94 H 22 90/54 L 90 L 11/04/17 04:50 94 H 21 89 L 11/04/17 04:40 96 H 25 H 90 L 11/04/17 04:30 96 H 22 91 L 11/04/17 04:20 94 H 22 89 L 11/04/17 04:10 91 H 22 92 L 11/04/17 04:00 89 17 104/61 95 11/04/17 03:50 88 24 92 L 11/04/17 03:40 84 22 94 L 11/04/17 03:30 93 H 39 H 94 L 11/04/17 03:26 101 H 49 H 11/04/17 03:20 90 12 96 11/04/17 03:10 86 96 Intake and Output (Last 8hrs): Intake & Output 11/03/17 11/04/17 11/04/17 22:59 06:59 14:59 Intake Total 300 Balance 300 Weight 255 lb Intake: IV 300 Right Antecubital 300 - Physical Exam Head: Positive for: Atraumatic, Normocephalic Pupils: Positive for: PERRL Extroacular Muscles: Positive for: EOMI Conjunctiva: Positive for: Normal Mouth: Positive for: Moist Mucous Membranes Neck: Positive for: Normal Range of Motion Respiratory/Chest: Positive for: Clear to Auscultation, Good Air Exchange. Negative for: Respiratory Distress, Accessory Muscle Use Cardiovascular: Positive for: Regular Rate and Rhythm, Normal S1, S2. Negative for: Murmurs Abdomen: Positive for: Normal Bowel Sounds. Negative for: Tenderness, Distention, Peritoneal Signs Back: Positive for: Normal Inspection, Other (no sign of spinal tenderness or erythema/fluctuance/crepitus.) Upper Extremity: Positive for: Normal Inspection. Negative for: Cyanosis, Edema Lower Extremity: Positive for: Normal Inspection. Negative for: Edema Neurological: Positive for: GCS=15, CN II-XII Intact, Speech Normal Skin: Positive for: Warm, Dry, Normal Color. Negative for: Rashes Psychiatric: Positive for: Alert, Oriented x 3, Normal Insight, Normal Concentration Other physical findings (Free Text): +Tenderness at the right flank. - Medications Active Medications: Active Medications Generic Name Dose Route Start Last Admin Trade Name Freq PRN Reason Stop Dose Admin Acetaminophen 650 mg 11/03/17 15:19 11/04/17 03:51 Tylenol 325mg Tab PO 650 mg Q4 PRN Administration Fever >100.4 F Carvedilol 12.5 mg 11/03/17 18:00 11/03/17 17:53 Coreg PO Not Given BID JONG Gabapentin 300 mg 11/04/17 10:00 Neurontin PO BID JONG Protocol Gabapentin 600 mg 11/03/17 22:00 11/03/17 22:07 Neurontin PO 600 mg HS JONG Administration Protocol Sodium Chloride 1,000 mls @ 100 mls/hr 11/03/17 14:30 11/04/17 05:57 Sodium Chloride 0.9% IV 100 mls/hr .Q10H JONG Administration Ceftriaxone Sodium 1 gm in 100 mls @ 100 mls/hr 11/03/17 15:30 11/03/17 17:59 Rocephin 1 Gram Ivpb IVPB 100 mls/hr DAILY JONG Administration Protocol Azithromycin 500 mg in 250 mls @ 167 mls/hr 11/03/17 15:30 11/03/17 17:58 Zithromax 500mg In Ns IVPB 167 mls/hr DAILY JONG Administration Protocol Ibuprofen 400 mg 11/03/17 15:19 Motrin Tab PO Q6H PRN Pain, Mild (1-3) Insulin Human Regular 0 units 11/03/17 22:00 11/03/17 22:21 Humulin R Low SC Not Given ACHS OJNG Protocol Losartan Potassium 25 mg 11/04/17 10:00 Cozaar PO DAILY JONG Ondansetron HCl 4 mg 11/03/17 15:19 Zofran Inj IVP Q4H PRN Nausea/Vomiting Oxycodone/Acetaminophen 1 tab 11/03/17 18:31 11/03/17 18:59 Percocet 5/325 Mg Tab PO 11/06/17 18:32 1 tab Q6H PRN Administration Pain, moderate (4-7) Pantoprazole Sodium 40 mg 11/04/17 10:00 Protonix Ec Tab PO DAILY JONG - Patient Studies Lab Studies: Lab Studies 11/04/17 11/04/17 11/04/17 Range/Units 05:30 05:30 04:30 WBC 7.6 D (4.5-11.0) 10^3/ul RBC 5.24 (3.5-6.1) 10^6/uL Hgb 10.5 L (14.0-18.0) g/dL Hct 32.5 L (42.0-52.0) % MCV 62.0 L (80.0-105.0) fl MCH 20.0 L (25.0-35.0) pg MCHC 32.3 (31.0-37.0) g/dl RDW 17.8 H (11.5-14.5) % Plt Count 109 L (120.0-450.0) 10^3/uL PT 12.4 (9.4-12.5) SECONDS INR 1.08 (0.93-1.08) pO2 (30-55) mm/Hg VBG pH (7.32-7.43) VBG pCO2 (40-60) VBG HCO3 (21-28) mmol/l VBG Total CO2 (22-28) mmol.L VBG O2 Sat (Calc) (40-65) % VBG Base Excess (0.0-2.0) mmol/L VBG Potassium (3.6-5.2) mmol/L Sodium (132-148) mmol/L Chloride (98-107) mmol/L Glucose (75-110) mg/dl Lactate (0.7-2.1) mmol/L FiO2 % POC Glucose (mg/dL) (65-110) mg/dL Lactate Dehydrogenase (333-699) U/L Total Creatine Kinase (35-230) U/L Troponin I ng/mL Procalcitonin (0.19-0.49) NG/ML Venous Blood Potassium (3.6-5.2) mmol/L Urine Opiates Screen Negative (NEGATIVE) Urine Methadone Screen Negative (NEGATIVE) Ur Barbiturates Screen Negative (NEGATIVE) Ur Phencyclidine Scrn Negative (NEGATIVE) Ur Amphetamines Screen Negative (NEGATIVE) U Benzodiazepines Scrn Negative (NEGATIVE) U Oth Cocaine Metabols Negative (NEGATIVE) U Cannabinoids Screen Negative (NEGATIVE) 11/04/17 11/03/17 11/03/17 Range/Units 02:34 23:15 21:50 WBC (4.5-11.0) 10^3/ul RBC (3.5-6.1) 10^6/uL Hgb (14.0-18.0) g/dL Hct (42.0-52.0) % MCV (80.0-105.0) fl MCH (25.0-35.0) pg MCHC (31.0-37.0) g/dl RDW (11.5-14.5) % Plt Count (120.0-450.0) 10^3/uL PT (9.4-12.5) SECONDS INR (0.93-1.08) pO2 (30-55) mm/Hg VBG pH (7.32-7.43) VBG pCO2 (40-60) VBG HCO3 (21-28) mmol/l VBG Total CO2 (22-28) mmol.L VBG O2 Sat (Calc) (40-65) % VBG Base Excess (0.0-2.0) mmol/L VBG Potassium (3.6-5.2) mmol/L Sodium (132-148) mmol/L Chloride (98-107) mmol/L Glucose (75-110) mg/dl Lactate (0.7-2.1) mmol/L FiO2 % POC Glucose (mg/dL) 237 H 324 H (65-110) mg/dL Lactate Dehydrogenase 431 (333-699) U/L Total Creatine Kinase 170 (35-230) U/L Troponin I 3.50 H* D ng/mL Procalcitonin (0.19-0.49) NG/ML Venous Blood Potassium (3.6-5.2) mmol/L Urine Opiates Screen (NEGATIVE) Urine Methadone Screen (NEGATIVE) Ur Barbiturates Screen (NEGATIVE) Ur Phencyclidine Scrn (NEGATIVE) Ur Amphetamines Screen (NEGATIVE) U Benzodiazepines Scrn (NEGATIVE) U Oth Cocaine Metabols (NEGATIVE) U Cannabinoids Screen (NEGATIVE) 11/03/17 11/03/17 11/03/17 Range/Units 18:17 18:17 15:44 WBC (4.5-11.0) 10^3/ul RBC (3.5-6.1) 10^6/uL Hgb (14.0-18.0) g/dL Hct (42.0-52.0) % MCV (80.0-105.0) fl MCH (25.0-35.0) pg MCHC (31.0-37.0) g/dl RDW (11.5-14.5) % Plt Count (120.0-450.0) 10^3/uL PT (9.4-12.5) SECONDS INR (0.93-1.08) pO2 47 (30-55) mm/Hg VBG pH 7.36 (7.32-7.43) VBG pCO2 37.0 L (40-60) VBG HCO3 20.9 L (21-28) mmol/l VBG Total CO2 22.0 (22-28) mmol.L VBG O2 Sat (Calc) 84.9 H (40-65) % VBG Base Excess -4.0 L (0.0-2.0) mmol/L VBG Potassium 4.7 (3.6-5.2) mmol/L Sodium 131.0 L (132-148) mmol/L Chloride 99.0 (98-107) mmol/L Glucose 343 H (75-110) mg/dl Lactate 2.1 (0.7-2.1) mmol/L FiO2 21.0 % POC Glucose (mg/dL) (65-110) mg/dL Lactate Dehydrogenase 427 (333-699) U/L Total Creatine Kinase 169 (35-230) U/L Troponin I 5.06 H* D ng/mL Procalcitonin > 200.00 H (0.19-0.49) NG/ML Venous Blood Potassium 4.7 (3.6-5.2) mmol/L Urine Opiates Screen (NEGATIVE) Urine Methadone Screen (NEGATIVE) Ur Barbiturates Screen (NEGATIVE) Ur Phencyclidine Scrn (NEGATIVE) Ur Amphetamines Screen (NEGATIVE) U Benzodiazepines Scrn (NEGATIVE) U Oth Cocaine Metabols (NEGATIVE) U Cannabinoids Screen (NEGATIVE) Laboratory Results - last 24 hr 11/03/17 11/03/17 11/03/17 15:44 18:17 18:17 WBC RBC Hgb Hct MCV MCH MCHC RDW Plt Count PT INR pO2 47 VBG pH 7.36 VBG pCO2 37.0 L VBG HCO3 20.9 L VBG Total CO2 22.0 VBG O2 Sat (Calc) 84.9 H VBG Base Excess -4.0 L VBG Potassium 4.7 Sodium 131.0 L Chloride 99.0 Glucose 343 H Lactate 2.1 FiO2 21.0 POC Glucose (mg/dL) Lactate Dehydrogenase 427 Total Creatine Kinase 169 Troponin I 5.06 H* D Procalcitonin > 200.00 H Venous Blood Potassium 4.7 Urine Opiates Screen Urine Methadone Screen Ur Barbiturates Screen Ur Phencyclidine Scrn Ur Amphetamines Screen U Benzodiazepines Scrn U Oth Cocaine Metabols U Cannabinoids Screen 11/03/17 11/03/17 11/04/17 21:50 23:15 02:34 WBC RBC Hgb Hct MCV MCH MCHC RDW Plt Count PT INR pO2 VBG pH VBG pCO2 VBG HCO3 VBG Total CO2 VBG O2 Sat (Calc) VBG Base Excess VBG Potassium Sodium Chloride Glucose Lactate FiO2 POC Glucose (mg/dL) 324 H 237 H Lactate Dehydrogenase 431 Total Creatine Kinase 170 Troponin I 3.50 H* D Procalcitonin Venous Blood Potassium Urine Opiates Screen Urine Methadone Screen Ur Barbiturates Screen Ur Phencyclidine Scrn Ur Amphetamines Screen U Benzodiazepines Scrn U Oth Cocaine Metabols U Cannabinoids Screen 11/04/17 11/04/17 11/04/17 04:30 05:30 05:30 WBC 7.6 D RBC 5.24 Hgb 10.5 L Hct 32.5 L MCV 62.0 L MCH 20.0 L MCHC 32.3 RDW 17.8 H Plt Count 109 L PT 12.4 INR 1.08 pO2 VBG pH VBG pCO2 VBG HCO3 VBG Total CO2 VBG O2 Sat (Calc) VBG Base Excess VBG Potassium Sodium Chloride Glucose Lactate FiO2 POC Glucose (mg/dL) Lactate Dehydrogenase Total Creatine Kinase Troponin I Procalcitonin Venous Blood Potassium Urine Opiates Screen Negative Urine Methadone Screen Negative Ur Barbiturates Screen Negative Ur Phencyclidine Scrn Negative Ur Amphetamines Screen Negative U Benzodiazepines Scrn Negative U Oth Cocaine Metabols Negative U Cannabinoids Screen Negative Results Reviewed to Date: Yes Critical Care Progress Note - Nutrition Nutrition: Nutrition Category Date Time Status Heart Healthy Diet [DIET] Diets 11/03/17 Dinner Ordered Assessment/Plan - Assessment and Plan (Free Text) Assessment: Patient is a 52 y/o male PMHx obesity, IDDM, htn, severe back pain ( with recent spinal injection) dilated cardiomyopathy with LVEF of 30% s/p AICD admitted after being shocked by his AICD. On admission, patient was noted to be febrile, with gram positive cocci bacteremia. Patient is otherwise hemodynamically stable. Plan: Neuro: stable at baseline. Pulm: Patient has underlying copd and GUSTAVO, on Cpap at home. chest x-ray with no active finding, however patient has high procal, and febrile. R/o CAP continue CPAP at night, nasal cannula prn Maintain SpO2>95. Cardio: Dilated cardiomyopathy with latest LVEF of 30%. s/p aicd, admitted due to aicd shocks, s/p interrogation and adjustment of the aicd. Pt is hemodynamically stable. Electrophysiology Dr. Eden saw patient, no shock since admission. [employer] Administrator following. continue carvedilol and cozaar Troponin leak likely due to AICD shock. ID: Severe sepsis with end organ damage, likely due to gram positive cocci bacteremia with unclear etiology ( AICD versus recent spinal injection). - Fever overnight, tmax 100.8. continue with tylenol, no leukocytosis , +procal elevation. - continue with gentle hydration - Continue with Rocephin, Zithromax. Cubicin was added as per ID. - Repeat blood culture pending. Renal: GIRMA likely pre-renal versus intrarenal. patient is voiding, thus less likely post renal. on NS @ 100 cc/hr. will continue to monitor renal function, Endo: uncontrolled diabetes- continue insulin sliding scale, fingertsicks achs, carb controlled diet. GI ppx with protonix Heme: h/h with slight drop, likely dilution, no active bleeding, will monitor for now. Thrombocytopenia- plt in 100s, will continue to monitor for now. DVT prophyalxis: mechanical compression Dispo: Pt is hemodynamically stable. Transfer to [facility]. Pt was seen, examined and discussed with attending, Dr. Yanes. - Date & Time Date: 11/04/17 Time: 11:20 <Chema Yanes - Last Filed: 11/04/17 11:35> CCU Objective - Vital Signs / Intake & Output Vital Signs (Last 4 hours): Vital Signs Temp Pulse Resp BP Pulse Ox 11/04/17 09:02 104 H 109/69 11/04/17 09:00 104 H 109/69 11/04/17 08:50 105 H 94 L 11/04/17 08:40 104 H 11 L 90 L 11/04/17 08:30 105 H 26 H 93 L 11/04/17 08:26 105 H 11/04/17 08:20 104 H 23 96 11/04/17 08:10 101 H 42 H 95 11/04/17 08:06 100.8 F H 11/04/17 08:00 100.8 F H 105 H 14 98/62 L 92 L 11/04/17 07:50 104 H 28 H 90 L 11/04/17 07:40 99 H 92 L Intake and Output (Last 8hrs): Intake & Output 11/03/17 11/04/17 11/04/17 22:59 06:59 14:59 Intake Total 300 Balance 300 Weight 255 lb Intake: IV 300 Right Antecubital 300 - Medications Active Medications: Active Medications Generic Name Dose Route Start Last Admin Trade Name Freq PRN Reason Stop Dose Admin Acetaminophen 650 mg 11/03/17 15:19 11/04/17 08:06 Tylenol 325mg Tab PO 650 mg Q4 PRN Administration Fever >100.4 F Carvedilol 12.5 mg 11/03/17 18:00 11/04/17 09:02 Coreg PO 12.5 mg BID JONG Administration Gabapentin 300 mg 11/04/17 10:00 11/04/17 09:02 Neurontin PO 300 mg BID JONG Administration Protocol Gabapentin 600 mg 11/03/17 22:00 11/03/17 22:07 Neurontin PO 600 mg HS JONG Administration Protocol Sodium Chloride 1,000 mls @ 100 mls/hr 11/03/17 14:30 11/04/17 05:57 Sodium Chloride 0.9% IV 100 mls/hr .Q10H JONG Administration Azithromycin 500 mg in 250 mls @ 167 mls/hr 11/03/17 15:30 11/04/17 09:03 Zithromax 500mg In Ns IVPB 167 mls/hr DAILY JONG Administration Protocol Ceftriaxone Sodium 2 gm in 100 mls @ 100 mls/hr 11/04/17 10:00 11/04/17 11:15 Rocephin 2 Gm Ivpb IVPB 100 mls/hr DAILY JONG Administration Protocol Ibuprofen 400 mg 11/03/17 15:19 11/04/17 11:22 Motrin Tab PO 400 mg Q6H PRN Administration Pain, Mild (1-3) Insulin Human Regular 0 units 11/03/17 22:00 11/04/17 08:00 Humulin R Low SC Not Given ACHS JONG Protocol Losartan Potassium 25 mg 11/04/17 10:00 11/04/17 09:02 Cozaar PO 25 mg DAILY JONG Administration Ondansetron HCl 4 mg 11/03/17 15:19 Zofran Inj IVP Q4H PRN Nausea/Vomiting Oxycodone/Acetaminophen 1 tab 11/03/17 18:31 11/03/17 18:59 Percocet 5/325 Mg Tab PO 11/06/17 18:32 1 tab Q6H PRN Administration Pain, moderate (4-7) Pantoprazole Sodium 40 mg 11/04/17 10:00 11/04/17 09:03 Protonix Ec Tab PO 40 mg DAILY JONG Administration - Patient Studies Lab Studies: Lab Studies 11/04/17 11/04/17 11/04/17 Range/Units 09:00 07:31 05:30 WBC (4.5-11.0) 10^3/ul RBC (3.5-6.1) 10^6/uL Hgb (14.0-18.0) g/dL Hct (42.0-52.0) % MCV (80.0-105.0) fl MCH (25.0-35.0) pg MCHC (31.0-37.0) g/dl RDW (11.5-14.5) % Plt Count (120.0-450.0) 10^3/uL ESR 56 H (0.00-15.0) mm/hr PT (9.4-12.5) SECONDS INR (0.93-1.08) pO2 (30-55) mm/Hg VBG pH (7.32-7.43) VBG pCO2 (40-60) VBG HCO3 (21-28) mmol/l VBG Total CO2 (22-28) mmol.L VBG O2 Sat (Calc) (40-65) % VBG Base Excess (0.0-2.0) mmol/L VBG Potassium (3.6-5.2) mmol/L Sodium (132-148) mmol/L Chloride (98-107) mmol/L Glucose (75-110) mg/dl Lactate (0.7-2.1) mmol/L FiO2 % Potassium (3.6-5.0) mmol/L Carbon Dioxide (21-33) mmol/L Anion Gap (10-20) BUN (7-21) mg/dL Creatinine (0.8-1.5) mg/dl Est GFR ( Amer) Est GFR (Non-Af Amer) POC Glucose (mg/dL) 196 H (65-110) mg/dL Random Glucose (70-110) mg/dL Calcium (8.4-10.5) mg/dL Total Bilirubin (0.2-1.3) mg/dL AST (17-59) U/L ALT (7-56) U/L Alkaline Phosphatase (38-126) U/L Lactate Dehydrogenase (333-699) U/L Total Creatine Kinase (35-230) U/L Troponin I ng/mL Total Protein (5.8-8.3) g/dL Albumin (3.0-4.8) g/dL Globulin gm/dL Albumin/Globulin Ratio (1.1-1.8) Procalcitonin (0.19-0.49) NG/ML Venous Blood Potassium (3.6-5.2) mmol/L Urine Opiates Screen (NEGATIVE) Urine Methadone Screen (NEGATIVE) Ur Barbiturates Screen (NEGATIVE) Ur Phencyclidine Scrn (NEGATIVE) Ur Amphetamines Screen (NEGATIVE) U Benzodiazepines Scrn (NEGATIVE) U Oth Cocaine Metabols (NEGATIVE) U Cannabinoids Screen (NEGATIVE) Influenza Typ A,B (EIA) Negative for flu a/b (NEGATIVE) 11/04/17 11/04/17 11/04/17 Range/Units 05:30 05:30 05:30 WBC 7.6 D (4.5-11.0) 10^3/ul RBC 5.24 (3.5-6.1) 10^6/uL Hgb 10.5 L (14.0-18.0) g/dL Hct 32.5 L (42.0-52.0) % MCV 62.0 L (80.0-105.0) fl MCH 20.0 L (25.0-35.0) pg MCHC 32.3 (31.0-37.0) g/dl RDW 17.8 H (11.5-14.5) % Plt Count 109 L (120.0-450.0) 10^3/uL ESR (0.00-15.0) mm/hr PT 12.4 (9.4-12.5) SECONDS INR 1.08 (0.93-1.08) pO2 (30-55) mm/Hg VBG pH (7.32-7.43) VBG pCO2 (40-60) VBG HCO3 (21-28) mmol/l VBG Total CO2 (22-28) mmol.L VBG O2 Sat (Calc) (40-65) % VBG Base Excess (0.0-2.0) mmol/L VBG Potassium (3.6-5.2) mmol/L Sodium 137 (132-148) mmol/L Chloride 103 (98-107) mmol/L Glucose (75-110) mg/dl Lactate (0.7-2.1) mmol/L FiO2 % Potassium 4.9 (3.6-5.0) mmol/L Carbon Dioxide 24 (21-33) mmol/L Anion Gap 15 (10-20) BUN 42 H (7-21) mg/dL Creatinine 1.8 H (0.8-1.5) mg/dl Est GFR ( Amer) 48 Est GFR (Non-Af Amer) 40 POC Glucose (mg/dL) (65-110) mg/dL Random Glucose 247 H (70-110) mg/dL Calcium 9.3 (8.4-10.5) mg/dL Total Bilirubin 0.6 (0.2-1.3) mg/dL AST 58 (17-59) U/L ALT 60 H (7-56) U/L Alkaline Phosphatase 57 (38-126) U/L Lactate Dehydrogenase (333-699) U/L Total Creatine Kinase (35-230) U/L Troponin I ng/mL Total Protein 7.0 (5.8-8.3) g/dL Albumin 3.5 (3.0-4.8) g/dL Globulin 3.5 gm/dL Albumin/Globulin Ratio 1.0 L (1.1-1.8) Procalcitonin (0.19-0.49) NG/ML Venous Blood Potassium (3.6-5.2) mmol/L Urine Opiates Screen (NEGATIVE) Urine Methadone Screen (NEGATIVE) Ur Barbiturates Screen (NEGATIVE) Ur Phencyclidine Scrn (NEGATIVE) Ur Amphetamines Screen (NEGATIVE) U Benzodiazepines Scrn (NEGATIVE) U Oth Cocaine Metabols (NEGATIVE) U Cannabinoids Screen (NEGATIVE) Influenza Typ A,B (EIA) (NEGATIVE) 11/04/17 11/04/17 11/03/17 Range/Units 04:30 02:34 23:15 WBC (4.5-11.0) 10^3/ul RBC (3.5-6.1) 10^6/uL Hgb (14.0-18.0) g/dL Hct (42.0-52.0) % MCV (80.0-105.0) fl MCH (25.0-35.0) pg MCHC (31.0-37.0) g/dl RDW (11.5-14.5) % Plt Count (120.0-450.0) 10^3/uL ESR (0.00-15.0) mm/hr PT (9.4-12.5) SECONDS INR (0.93-1.08) pO2 (30-55) mm/Hg VBG pH (7.32-7.43) VBG pCO2 (40-60) VBG HCO3 (21-28) mmol/l VBG Total CO2 (22-28) mmol.L VBG O2 Sat (Calc) (40-65) % VBG Base Excess (0.0-2.0) mmol/L VBG Potassium (3.6-5.2) mmol/L Sodium (132-148) mmol/L Chloride (98-107) mmol/L Glucose (75-110) mg/dl Lactate (0.7-2.1) mmol/L FiO2 % Potassium (3.6-5.0) mmol/L Carbon Dioxide (21-33) mmol/L Anion Gap (10-20) BUN (7-21) mg/dL Creatinine (0.8-1.5) mg/dl Est GFR ( Amer) Est GFR (Non-Af Amer) POC Glucose (mg/dL) 237 H (65-110) mg/dL Random Glucose (70-110) mg/dL Calcium (8.4-10.5) mg/dL Total Bilirubin (0.2-1.3) mg/dL AST (17-59) U/L ALT (7-56) U/L Alkaline Phosphatase (38-126) U/L Lactate Dehydrogenase 431 (333-699) U/L Total Creatine Kinase 170 (35-230) U/L Troponin I 3.50 H* D ng/mL Total Protein (5.8-8.3) g/dL Albumin (3.0-4.8) g/dL Globulin gm/dL Albumin/Globulin Ratio (1.1-1.8) Procalcitonin (0.19-0.49) NG/ML Venous Blood Potassium (3.6-5.2) mmol/L Urine Opiates Screen Negative (NEGATIVE) Urine Methadone Screen Negative (NEGATIVE) Ur Barbiturates Screen Negative (NEGATIVE) Ur Phencyclidine Scrn Negative (NEGATIVE) Ur Amphetamines Screen Negative (NEGATIVE) U Benzodiazepines Scrn Negative (NEGATIVE) U Oth Cocaine Metabols Negative (NEGATIVE) U Cannabinoids Screen Negative (NEGATIVE) Influenza Typ A,B (EIA) (NEGATIVE) 11/03/17 11/03/17 11/03/17 Range/Units 21:50 18:17 18:17 WBC (4.5-11.0) 10^3/ul RBC (3.5-6.1) 10^6/uL Hgb (14.0-18.0) g/dL Hct (42.0-52.0) % MCV (80.0-105.0) fl MCH (25.0-35.0) pg MCHC (31.0-37.0) g/dl RDW (11.5-14.5) % Plt Count (120.0-450.0) 10^3/uL ESR (0.00-15.0) mm/hr PT (9.4-12.5) SECONDS INR (0.93-1.08) pO2 (30-55) mm/Hg VBG pH (7.32-7.43) VBG pCO2 (40-60) VBG HCO3 (21-28) mmol/l VBG Total CO2 (22-28) mmol.L VBG O2 Sat (Calc) (40-65) % VBG Base Excess (0.0-2.0) mmol/L VBG Potassium (3.6-5.2) mmol/L Sodium (132-148) mmol/L Chloride (98-107) mmol/L Glucose (75-110) mg/dl Lactate (0.7-2.1) mmol/L FiO2 % Potassium (3.6-5.0) mmol/L Carbon Dioxide (21-33) mmol/L Anion Gap (10-20) BUN (7-21) mg/dL Creatinine (0.8-1.5) mg/dl Est GFR ( Amer) Est GFR (Non-Af Amer) POC Glucose (mg/dL) 324 H (65-110) mg/dL Random Glucose (70-110) mg/dL Calcium (8.4-10.5) mg/dL Total Bilirubin (0.2-1.3) mg/dL AST (17-59) U/L ALT (7-56) U/L Alkaline Phosphatase (38-126) U/L Lactate Dehydrogenase 427 (333-699) U/L Total Creatine Kinase 169 (35-230) U/L Troponin I 5.06 H* D ng/mL Total Protein (5.8-8.3) g/dL Albumin (3.0-4.8) g/dL Globulin gm/dL Albumin/Globulin Ratio (1.1-1.8) Procalcitonin > 200.00 H (0.19-0.49) NG/ML Venous Blood Potassium (3.6-5.2) mmol/L Urine Opiates Screen (NEGATIVE) Urine Methadone Screen (NEGATIVE) Ur Barbiturates Screen (NEGATIVE) Ur Phencyclidine Scrn (NEGATIVE) Ur Amphetamines Screen (NEGATIVE) U Benzodiazepines Scrn (NEGATIVE) U Oth Cocaine Metabols (NEGATIVE) U Cannabinoids Screen (NEGATIVE) Influenza Typ A,B (EIA) (NEGATIVE) 11/03/17 Range/Units 15:44 WBC (4.5-11.0) 10^3/ul RBC (3.5-6.1) 10^6/uL Hgb (14.0-18.0) g/dL Hct (42.0-52.0) % MCV (80.0-105.0) fl MCH (25.0-35.0) pg MCHC (31.0-37.0) g/dl RDW (11.5-14.5) % Plt Count (120.0-450.0) 10^3/uL ESR (0.00-15.0) mm/hr PT (9.4-12.5) SECONDS INR (0.93-1.08) pO2 47 (30-55) mm/Hg VBG pH 7.36 (7.32-7.43) VBG pCO2 37.0 L (40-60) VBG HCO3 20.9 L (21-28) mmol/l VBG Total CO2 22.0 (22-28) mmol.L VBG O2 Sat (Calc) 84.9 H (40-65) % VBG Base Excess -4.0 L (0.0-2.0) mmol/L VBG Potassium 4.7 (3.6-5.2) mmol/L Sodium 131.0 L (132-148) mmol/L Chloride 99.0 (98-107) mmol/L Glucose 343 H (75-110) mg/dl Lactate 2.1 (0.7-2.1) mmol/L FiO2 21.0 % Potassium (3.6-5.0) mmol/L Carbon Dioxide (21-33) mmol/L Anion Gap (10-20) BUN (7-21) mg/dL Creatinine (0.8-1.5) mg/dl Est GFR ( Amer) Est GFR (Non-Af Amer) POC Glucose (mg/dL) (65-110) mg/dL Random Glucose (70-110) mg/dL Calcium (8.4-10.5) mg/dL Total Bilirubin (0.2-1.3) mg/dL AST (17-59) U/L ALT (7-56) U/L Alkaline Phosphatase (38-126) U/L Lactate Dehydrogenase (333-699) U/L Total Creatine Kinase (35-230) U/L Troponin I ng/mL Total Protein (5.8-8.3) g/dL Albumin (3.0-4.8) g/dL Globulin gm/dL Albumin/Globulin Ratio (1.1-1.8) Procalcitonin (0.19-0.49) NG/ML Venous Blood Potassium 4.7 (3.6-5.2) mmol/L Urine Opiates Screen (NEGATIVE) Urine Methadone Screen (NEGATIVE) Ur Barbiturates Screen (NEGATIVE) Ur Phencyclidine Scrn (NEGATIVE) Ur Amphetamines Screen (NEGATIVE) U Benzodiazepines Scrn (NEGATIVE) U Oth Cocaine Metabols (NEGATIVE) U Cannabinoids Screen (NEGATIVE) Influenza Typ A,B (EIA) (NEGATIVE) Laboratory Results - last 24 hr 11/03/17 11/03/17 11/03/17 15:44 18:17 18:17 WBC RBC Hgb Hct MCV MCH MCHC RDW Plt Count ESR PT INR pO2 47 VBG pH 7.36 VBG pCO2 37.0 L VBG HCO3 20.9 L VBG Total CO2 22.0 VBG O2 Sat (Calc) 84.9 H VBG Base Excess -4.0 L VBG Potassium 4.7 Sodium 131.0 L Chloride 99.0 Glucose 343 H Lactate 2.1 FiO2 21.0 Potassium Carbon Dioxide Anion Gap BUN Creatinine Est GFR ( Amer) Est GFR (Non-Af Amer) POC Glucose (mg/dL) Random Glucose Calcium Total Bilirubin AST ALT Alkaline Phosphatase Lactate Dehydrogenase 427 Total Creatine Kinase 169 Troponin I 5.06 H* D Total Protein Albumin Globulin Albumin/Globulin Ratio Procalcitonin > 200.00 H Venous Blood Potassium 4.7 Urine Opiates Screen Urine Methadone Screen Ur Barbiturates Screen Ur Phencyclidine Scrn Ur Amphetamines Screen U Benzodiazepines Scrn U Oth Cocaine Metabols U Cannabinoids Screen Influenza Typ A,B (EIA) 11/03/17 11/03/17 11/04/17 21:50 23:15 02:34 WBC RBC Hgb Hct MCV MCH MCHC RDW Plt Count ESR PT INR pO2 VBG pH VBG pCO2 VBG HCO3 VBG Total CO2 VBG O2 Sat (Calc) VBG Base Excess VBG Potassium Sodium Chloride Glucose Lactate FiO2 Potassium Carbon Dioxide Anion Gap BUN Creatinine Est GFR ( Amer) Est GFR (Non-Af Amer) POC Glucose (mg/dL) 324 H 237 H Random Glucose Calcium Total Bilirubin AST ALT Alkaline Phosphatase Lactate Dehydrogenase 431 Total Creatine Kinase 170 Troponin I 3.50 H* D Total Protein Albumin Globulin Albumin/Globulin Ratio Procalcitonin Venous Blood Potassium Urine Opiates Screen Urine Methadone Screen Ur Barbiturates Screen Ur Phencyclidine Scrn Ur Amphetamines Screen U Benzodiazepines Scrn U Oth Cocaine Metabols U Cannabinoids Screen Influenza Typ A,B (EIA) 11/04/17 11/04/17 11/04/17 04:30 05:30 05:30 WBC 7.6 D RBC 5.24 Hgb 10.5 L Hct 32.5 L MCV 62.0 L MCH 20.0 L MCHC 32.3 RDW 17.8 H Plt Count 109 L ESR PT 12.4 INR 1.08 pO2 VBG pH VBG pCO2 VBG HCO3 VBG Total CO2 VBG O2 Sat (Calc) VBG Base Excess VBG Potassium Sodium Chloride Glucose Lactate FiO2 Potassium Carbon Dioxide Anion Gap BUN Creatinine Est GFR ( Amer) Est GFR (Non-Af Amer) POC Glucose (mg/dL) Random Glucose Calcium Total Bilirubin AST ALT Alkaline Phosphatase Lactate Dehydrogenase Total Creatine Kinase Troponin I Total Protein Albumin Globulin Albumin/Globulin Ratio Procalcitonin Venous Blood Potassium Urine Opiates Screen Negative Urine Methadone Screen Negative Ur Barbiturates Screen Negative Ur Phencyclidine Scrn Negative Ur Amphetamines Screen Negative U Benzodiazepines Scrn Negative U Oth Cocaine Metabols Negative U Cannabinoids Screen Negative Influenza Typ A,B (EIA) 11/04/17 11/04/17 11/04/17 05:30 05:30 07:31 WBC RBC Hgb Hct MCV MCH MCHC RDW Plt Count ESR 56 H PT INR pO2 VBG pH VBG pCO2 VBG HCO3 VBG Total CO2 VBG O2 Sat (Calc) VBG Base Excess VBG Potassium Sodium 137 Chloride 103 Glucose Lactate FiO2 Potassium 4.9 Carbon Dioxide 24 Anion Gap 15 BUN 42 H Creatinine 1.8 H Est GFR ( Amer) 48 Est GFR (Non-Af Amer) 40 POC Glucose (mg/dL) 196 H Random Glucose 247 H Calcium 9.3 Total Bilirubin 0.6 AST 58 ALT 60 H Alkaline Phosphatase 57 Lactate Dehydrogenase Total Creatine Kinase Troponin I Total Protein 7.0 Albumin 3.5 Globulin 3.5 Albumin/Globulin Ratio 1.0 L Procalcitonin Venous Blood Potassium Urine Opiates Screen Urine Methadone Screen Ur Barbiturates Screen Ur Phencyclidine Scrn Ur Amphetamines Screen U Benzodiazepines Scrn U Oth Cocaine Metabols U Cannabinoids Screen Influenza Typ A,B (EIA) 11/04/17 09:00 WBC RBC Hgb Hct MCV MCH MCHC RDW Plt Count ESR PT INR pO2 VBG pH VBG pCO2 VBG HCO3 VBG Total CO2 VBG O2 Sat (Calc) VBG Base Excess VBG Potassium Sodium Chloride Glucose Lactate FiO2 Potassium Carbon Dioxide Anion Gap BUN Creatinine Est GFR ( Amer) Est GFR (Non-Af Amer) POC Glucose (mg/dL) Random Glucose Calcium Total Bilirubin AST ALT Alkaline Phosphatase Lactate Dehydrogenase Total Creatine Kinase Troponin I Total Protein Albumin Globulin Albumin/Globulin Ratio Procalcitonin Venous Blood Potassium Urine Opiates Screen Urine Methadone Screen Ur Barbiturates Screen Ur Phencyclidine Scrn Ur Amphetamines Screen U Benzodiazepines Scrn U Oth Cocaine Metabols U Cannabinoids Screen Influenza Typ A,B (EIA) Negative for flu a/b Critical Care Progress Note - Nutrition Nutrition: Nutrition Category Date Time Status Heart Healthy Diet [DIET] Diets 11/03/17 Dinner Ordered Assessment/Plan - Assessment and Plan (Free Text) Plan: Patient seen and examined on rounds with resident, agree with note with following additions/exceptions: 52yo male admitted with AICD shocks and fever. Currently afebrile, HD stable, comfortable in NAD at time of examination. Blood cultures postive for gram positive coci in chains, ID consulted, patient on antibiotics. ICD interrogated yesterday, please see EP note. No further shocks while in hospital Troponin downtrend, denies CP, SOB. AICD shock Fever GUSTAVO HTN CM, EF 40% Obesity Bacteremia Recommend: - supp o2 as needed - follow up cultures, ID consult, antibiotics as per ID - follow up cardiology - ECHO - resume home meds - CPAP at night PS 11 - GI ppx - DVT ppx - stable, transfer to telemetry
[2017-11-04 07:50] LABS: ALBUMIN 3.5 g/dL (3.0-4.8); CALCIUM 9.3 mg/dL (8.4-10.5)
[2017-11-04] MEDS: Insulin Reg-LOW-Coverage SC SCH ×4 (08:00→21:48)
[2017-11-04] MEDS: Azithromycin 500MG/NS 250ml 500 MG/250 ML BAG IVPB SCH (09:03)
[2017-11-04] MEDS: Pantoprazole 40 mg EC Tab PO SCH (09:03)
[2017-11-04] MEDS ORDERED: DAPTOmycin 500 mg Inj (Cubicin) IV ONE (09:45)
[2017-11-04] MEDS: cefTRIAXone 2 GM IN NS 2 GM/100 ML BAG IVPB SCH (11:15)
--- NOTE | 2017-11-04 11:56 | CP.PCM.CON ---
History of Present Illness - History of Present Illness History of Present Illness: 52 year old male with PMH of morbid obesity with BMI 40, HTN, DM, cardiomyopathy S/P AICD placement 8 years ago, chronic back pain was brought in to [facility] because of ICD shocks that happened anywhere between 7 -10 shocks yesterday. Prior to this he had a lumbar nerve block done on his lumbar area about 4 days ago. A day or two after that, the patient started "not feeling right" and had subjective fever and chills about 2 days ago, which persisted even prior the the ICD shocks. He denies headache or dizziness, no trauma to other parts of the body, no chest pain, no SOB, no rhinorrhea, no cough or colds, no body aches except for his chronic back pain, no diarrhea, no dysuria. He was also complaining of some right sided intermittent vague abdominal pain. Blood cx were done which are now showing gram positive cocci in chains. Infectious Diseases consult is requested to further evaluate and manage. Review of Systems - Review of Systems All systems: reviewed and no additional remarkable complaints except (as per HPI ) Past Patient History - Past Social History Smoking Status: Never Smoked - CARDIAC Hx Hypercholesterolemia: Yes Hx Hypertension: Yes Hx Pacemaker: Yes (pacemaker/defibrillator st [facility] 2008) - PULMONARY Hx Sleep Apnea: Yes (uses cpap at home) - ENDOCRINE/METABOLIC Hx Diabetes Mellitus Type 2: Yes - INTEGUMENTARY Other/Comment: tatoos - MUSCULOSKELETAL/RHEUMATOLOGICAL Hx Falls: No - GASTROINTESTINAL Hx Gastrointestinal Disorders: Yes (obese) - PSYCHIATRIC Hx Substance Use: No - SURGICAL HISTORY Hx Gastric Bypass Surgery: Yes (sleeve 2010) Other/Comment: left wrist surgery to release tendon, nerve root block 10/31/17, 2 abd hernia sx's within the last 5 yrs - ANESTHESIA Hx Anesthesia: Yes Hx Anesthesia Reactions: No Hx Malignant Hyperthermia: No Meds Allergies/Adverse Reactions: Allergies Allergy/AdvReac Type Severity Reaction Status Date / Time Sulfa (Sulfonamide Allergy ITCHING Verified 11/03/17 10:58 Antibiotics) - Medications Medications: Current Medications Acetaminophen (Tylenol 325mg Tab) 650 mg PO Q4 PRN PRN Reason: Fever >100.4 F Last Admin: 11/04/17 08:06 Dose: 650 mg Carvedilol (Coreg) 12.5 mg PO BID [facility] Last Admin: 11/04/17 09:02 Dose: 12.5 mg Gabapentin (Neurontin) 300 mg PO BID [facility] PRN Reason: Protocol Last Admin: 11/04/17 09:02 Dose: 300 mg Gabapentin (Neurontin) 600 mg PO HS [facility] PRN Reason: Protocol Last Admin: 11/03/17 22:07 Dose: 600 mg Sodium Chloride (Sodium Chloride 0.9%) 1,000 mls @ 100 mls/hr IV .Q10H [facility] Last Admin: 11/04/17 05:57 Dose: 100 mls/hr Ceftriaxone Sodium (Rocephin 1 Gram Ivpb) 1 gm in 100 mls @ 100 mls/hr IVPB DAILY [facility] PRN Reason: Protocol Last Admin: 11/03/17 17:59 Dose: 100 mls/hr Azithromycin (Zithromax 500mg In Ns) 500 mg in 250 mls @ 167 mls/hr IVPB DAILY [facility] PRN Reason: Protocol Last Admin: 11/04/17 09:03 Dose: 167 mls/hr Ibuprofen (Motrin Tab) 400 mg PO Q6H PRN PRN Reason: Pain, Mild (1-3) Insulin Human Regular (Humulin R Low) 0 units SC ACHS [facility] PRN Reason: Protocol Last Admin: 11/04/17 08:00 Dose: Not Given Losartan Potassium (Cozaar) 25 mg PO DAILY [facility] Last Admin: 11/04/17 09:02 Dose: 25 mg Ondansetron HCl (Zofran Inj) 4 mg IVP Q4H PRN PRN Reason: Nausea/Vomiting Oxycodone/Acetaminophen (Percocet 5/325 Mg Tab) 1 tab PO Q6H PRN PRN Reason: Pain, moderate (4-7) Stop: 11/06/17 18:32 Last Admin: 11/03/17 18:59 Dose: 1 tab Pantoprazole Sodium (Protonix Ec Tab) 40 mg PO DAILY [facility] Last Admin: 11/04/17 09:03 Dose: 40 mg Physical Exam - Constitutional Appears: Non-toxic, Chronically Ill - Head Exam Head Exam: NORMAL INSPECTION - ENT Exam ENT Exam: Mucous Membranes Moist - Neck Exam Neck exam: Negative for: Lymphadenopathy, Meningismus - Respiratory Exam Respiratory Exam: Decreased Breath Sounds Additional comments: left sided ICD in place - Cardiovascular Exam Cardiovascular Exam: +S1, +S2 - GI/Abdominal Exam GI & Abdominal Exam: Soft. absent: Tenderness Results - Vital Signs Recent Vital Signs: Last Vital Signs Temp 100.8 F H 11/04/17 08:06 Pulse 104 H 11/04/17 09:02 Resp 11 L 11/04/17 08:40 BP 109/69 11/04/17 09:02 Pulse Ox 94 L 11/04/17 08:50 - Labs Result Diagrams: 11/04/17 05:30 11/04/17 05:30 Labs: Laboratory Results - last 24 hr 11/03/17 11/03/17 11/03/17 15:44 18:17 18:17 WBC RBC Hgb Hct MCV MCH MCHC RDW Plt Count PT INR pO2 47 VBG pH 7.36 VBG pCO2 37.0 L VBG HCO3 20.9 L VBG Total CO2 22.0 VBG O2 Sat (Calc) 84.9 H VBG Base Excess -4.0 L VBG Potassium 4.7 Sodium 131.0 L Chloride 99.0 Glucose 343 H Lactate 2.1 FiO2 21.0 Potassium Carbon Dioxide Anion Gap BUN Creatinine Est GFR ( Amer) Est GFR (Non-Af Amer) POC Glucose (mg/dL) Random Glucose Calcium Total Bilirubin AST ALT Alkaline Phosphatase Lactate Dehydrogenase 427 Total Creatine Kinase 169 Troponin I 5.06 H* D Total Protein Albumin Globulin Albumin/Globulin Ratio Procalcitonin > 200.00 H Venous Blood Potassium 4.7 Urine Opiates Screen Urine Methadone Screen Ur Barbiturates Screen Ur Phencyclidine Scrn Ur Amphetamines Screen U Benzodiazepines Scrn U Oth Cocaine Metabols U Cannabinoids Screen Influenza Typ A,B (EIA) 11/03/17 11/03/17 11/04/17 21:50 23:15 02:34 WBC RBC Hgb Hct MCV MCH MCHC RDW Plt Count PT INR pO2 VBG pH VBG pCO2 VBG HCO3 VBG Total CO2 VBG O2 Sat (Calc) VBG Base Excess VBG Potassium Sodium Chloride Glucose Lactate FiO2 Potassium Carbon Dioxide Anion Gap BUN Creatinine Est GFR ( Amer) Est GFR (Non-Af Amer) POC Glucose (mg/dL) 324 H 237 H Random Glucose Calcium Total Bilirubin AST ALT Alkaline Phosphatase Lactate Dehydrogenase 431 Total Creatine Kinase 170 Troponin I 3.50 H* D Total Protein Albumin Globulin Albumin/Globulin Ratio Procalcitonin Venous Blood Potassium Urine Opiates Screen Urine Methadone Screen Ur Barbiturates Screen Ur Phencyclidine Scrn Ur Amphetamines Screen U Benzodiazepines Scrn U Oth Cocaine Metabols U Cannabinoids Screen Influenza Typ A,B (EIA) 11/04/17 11/04/17 11/04/17 04:30 05:30 05:30 WBC 7.6 D RBC 5.24 Hgb 10.5 L Hct 32.5 L MCV 62.0 L MCH 20.0 L MCHC 32.3 RDW 17.8 H Plt Count 109 L PT 12.4 INR 1.08 pO2 VBG pH VBG pCO2 VBG HCO3 VBG Total CO2 VBG O2 Sat (Calc) VBG Base Excess VBG Potassium Sodium Chloride Glucose Lactate FiO2 Potassium Carbon Dioxide Anion Gap BUN Creatinine Est GFR ( Amer) Est GFR (Non-Af Amer) POC Glucose (mg/dL) Random Glucose Calcium Total Bilirubin AST ALT Alkaline Phosphatase Lactate Dehydrogenase Total Creatine Kinase Troponin I Total Protein Albumin Globulin Albumin/Globulin Ratio Procalcitonin Venous Blood Potassium Urine Opiates Screen Negative Urine Methadone Screen Negative Ur Barbiturates Screen Negative Ur Phencyclidine Scrn Negative Ur Amphetamines Screen Negative U Benzodiazepines Scrn Negative U Oth Cocaine Metabols Negative U Cannabinoids Screen Negative Influenza Typ A,B (EIA) 11/04/17 11/04/17 05:30 09:00 WBC RBC Hgb Hct MCV MCH MCHC RDW Plt Count PT INR pO2 VBG pH VBG pCO2 VBG HCO3 VBG Total CO2 VBG O2 Sat (Calc) VBG Base Excess VBG Potassium Sodium 137 Chloride 103 Glucose Lactate FiO2 Potassium 4.9 Carbon Dioxide 24 Anion Gap 15 BUN 42 H Creatinine 1.8 H Est GFR ( Amer) 48 Est GFR (Non-Af Amer) 40 POC Glucose (mg/dL) Random Glucose 247 H Calcium 9.3 Total Bilirubin 0.6 AST 58 ALT 60 H Alkaline Phosphatase 57 Lactate Dehydrogenase Total Creatine Kinase Troponin I Total Protein 7.0 Albumin 3.5 Globulin 3.5 Albumin/Globulin Ratio 1.0 L Procalcitonin Venous Blood Potassium Urine Opiates Screen Urine Methadone Screen Ur Barbiturates Screen Ur Phencyclidine Scrn Ur Amphetamines Screen U Benzodiazepines Scrn U Oth Cocaine Metabols U Cannabinoids Screen Influenza Typ A,B (EIA) Negative for flu a/b Assessment & Plan - Assessment and Plan (Free Text) Plan: Assessment Sepsis due to gram positive cocci in chains bacteremia, source to be determined ; may need to rule out ICD as the source, although the lumbar nerve root block may also be a source morbid obesity with BMI 40 HTN DM cardiomyopathy S/P AICD placement 8 years ago chronic back pain Plan Will give a dose of IV Daptomycin and will continue Rocephin pending identification and sensitivities of the bacteria in the blood; will repeat blood cx reviewed 2D echo but there is no specific mention of the valves or ICD - would recommend JANE reviewed lumbar CT which showed disc herniation but no abscess, although it was done without contrast - patient has renal failure and it may not be safe to do this with contrast will monitor clinically
--- NOTE | 2017-11-04 15:16 | CT ---
PROCEDURE: CT Chest, Abdomen and Pelvis without intravenous contrast HISTORY: pneumonia COMPARISON: CT of the abdomen 12/06/2014 TECHNIQUE: Radiation dose: Total exam DLP = 1796 mGy-cm. This CT exam was performed using one or more of the following dose reduction techniques: Automated exposure control, adjustment of the mA and/or kV according to patient size, and/or use of iterative reconstruction technique. FINDINGS: CT CHEST WITHOUT CONTRAST: LUNGS: Clear. No nodule, mass or consolidation. MEDIASTINUM: Unremarkable. Normal caliber aorta and pulmonary arterial trunk. Normal size heart. LYMPH NODES: Unremarkable. PLEURA: Unremarkable. No pneumothorax. No pleural fluid. BONES: Unremarkable. OTHER FINDINGS: None. CT ABDOMEN AND PELVIS: LIVER: Unremarkable. No gross lesion or ductal dilatation. GALLBLADDER AND BILE DUCTS: Unremarkable. PANCREAS: Unremarkable. No gross lesion or ductal dilatation. SPLEEN: Unremarkable. ADRENALS: Unremarkable. No mass. KIDNEYS AND URETERS: Unremarkable. No hydronephrosis. No solid mass. VASCULATURE: Unremarkable. No aortic aneurysm. BOWEL: Unremarkable. No obstruction. No gross mural thickening. APPENDIX: Normal appendix. PERITONEUM: Unremarkable. No free fluid. No free air. LYMPH NODES: Unremarkable. No enlarged lymph nodes. BLADDER: Unremarkable. REPRODUCTIVE: Unremarkable. BONES: No acute fracture. OTHER FINDINGS: None. IMPRESSION: No acute findings
--- NOTE | 2017-11-04 16:21 | PN ---
DATE: SUBJECTIVE: The patient underwent defibrillator analysis. Findings were discussed with Dr. Jorge Mitchell, who was consulted on the patient and the discharge of defibrillator was in response to sinus tachycardia. Necessary adjustments were made on the defibrillator. The patient is experiencing weakness. He denied any retrosternal chest pain. He is currently in telemetry. No reported ventricular arrhythmia. PHYSICAL EXAMINATION VITAL SIGNS: Blood pressure 110/76, heart rate 97, temperature 100, respirations 16. HEENT: Normocephalic. CHEST: Bibasilar rhonchi. HEART: S1 and S2 regular. ABDOMEN: Soft. EXTREMITIES: 1+ pitting edema. LABORATORY DATA AND IMAGING: SMA-7: Sodium 137, potassium 4.9, chloride 103, CO2 24, glucose 247, BUN 42, creatinine 1.8. Troponins were as follows, 2.92, 5.06, and 3.5. Urine drug screen is negative. Today's hemoglobin and hematocrit 10.5 and 32.5, white count 7.6, platelet count 190,000. Echocardiography study revealed mild dilated left ventricle with severe diffuse left ventricular hypokinesis. Ejection fraction revealed 30%. Blood culture is positive for Gram-positive cocci. ASSESSMENT: 1. Cardiomyopathy. 2. Status post implantable cardioverter-defibrillator discharge, erroneously in response to sinus tachycardia. 3. Gram-positive bacteremia, rule out underlying sepsis. 4. Chronic low back pain status post recent nerve block injection. CONDITIONS: Continue current Coreg 12.5 mg twice a day, Cozaar 25 mg once a day, Neurontin 600 mg once a day, Percocet 1 tablet q.6 hours p.r.n., Rocephin 2 g intravenously daily, and Zithromax 500 mg intravenously daily. Follow up final identification of blood culture. Urine culture has been requested. In the meantime, I recommend CT scan of the chest, abdomen and pelvis without contrast. Navid Salinas MD
[2017-11-04] MEDS: Oxycodone/Acetaminophen 5/325 mg Tab PO PRN (16:38)
--- NOTE | 2017-11-04 18:13 | HP ---
HISTORY OF PRESENT ILLNESS: This is a 52-year-old white male admitted with high fever, multiple discharges from his defibrillator, recent history of epidural by an anesthesiologist with some residual back pain. The patient had a CT and MRI at this point to rule out abscess. He had blood cultures done. Flu was negative. His defibrillator was reset to decrease discharges. He was started on IV fluids and prophylactic antibiotics. The patient is in the Intensive Care Unit. Hemoglobin is 10.5. BUN and creatine elevated at 42 and 1.8. His blood sugar is 109. The patient has history of ischemic cardiomyopathy with low ejection and defibrillator for several years. He also has history of morbid obesity, [id number] diabetes mellitus, and chronic back pain. The patient is more comfortable today, did not sleep, but however, he is awake, alert and oriented x3. PHYSICAL EXAMINATION: VITAL SIGNS: His temperature today is 100.8, heart rate 105, blood pressure is 95/54. CHEST: Clear to auscultation and percussion. HEART: Regular sinus rhythm. ABDOMEN: Soft. Bowel sounds are normoactive. EXTREMITIES: Without cyanosis, clubbing or edema. IMPRESSION: He is stable. We will transfer him to telemetry. He will continue IV antibiotics and follow cultures. Erik Raymond MD
[2017-11-05] MEDS: Oxycodone/Acetaminophen 5/325 mg Tab PO PRN (00:13)
[2017-11-05] MEDS: Sodium Chloride 0.9% 1,000 ML IV SCH ×2 (05:04→22:35)
[2017-11-05 08:03] LABS: HEMOGLOBIN 9.2 g/dL (14.0-18.0); MEAN CELL VOLUME 61.5 fl (80.0-105.0); MEAN CORPUSCULAR HEMOGLOBIN 19.7 pg (25.0-35.0); MEAN CORPUSCULAR HGB CONC 32.1 g/dl (31.0-37.0); PLATELET COUNT 102 10^3/uL (120.0-450.0); RBC 4.67 10^6/uL (3.5-6.1); RED CELL DISTRIBUTION WIDTH 17.6 % (11.5-14.5)
[2017-11-05 08:07] LABS: INR 1.05 (0.93-1.08); PROTHROMBIN TIME 12.1 SECONDS (9.4-12.5)
[2017-11-05 08:11] LABS: ALBUMIN 3.1 g/dL (3.0-4.8); ALT/SGPT 47 U/L (7-56); AST/SGOT 32 U/L (17-59); BLOOD UREA NITROGEN 32 mg/dL (7-21); CALCIUM 8.4 mg/dL (8.4-10.5); GFR AFRICAN-AMERICAN > 60; GFR NON-AFRICAN AMERICAN > 60
[2017-11-05] MEDS: Oxycodone/Acetaminophen 10/325 mg Tab PO PRN (10:15)
[2017-11-05] MEDS: Pantoprazole 40 mg EC Tab PO SCH (10:17)
[2017-11-05] MEDS: Insulin Reg-LOW-Coverage SC SCH ×4 (10:18→22:36)
[2017-11-05] MEDS: cefTRIAXone 2 GM IN NS 2 GM/100 ML BAG IVPB SCH (10:19)
--- NOTE | 2017-11-05 11:20 | CT ---
PROCEDURE: CT of the right knee HISTORY: pain/ knee/sepsis COMPARISON: TECHNIQUE: Radiation dose: Total exam DLP = 295 mGy-cm. This CT exam was performed using one or more of the following dose reduction techniques: Automated exposure control, adjustment of the mA and/or kV according to patient size, and/or use of iterative reconstruction technique. FINDINGS: There is no evidence of fracture. There is no evidence of osteomyelitis. There is no joint effusion. IMPRESSION: Negative study
--- NOTE | 2017-11-05 11:39 | PN ---
DATE: SUBJECTIVE: A 52-year-old male admitted to the hospital with multiple defibrillator discharges, fever, chills, elevated white count, positive bacteremia with Gram-positive cocci in chains on multiple bottles. CT of the abdomen, pelvis and chest were negative. Echo did not show any evidence of endocarditis. The patient will be scheduled for JANE as soon as possible. PHYSICAL EXAMINATION VITAL SIGNS: Stable. CHEST: Clear to auscultation and percussion. HEART: Reveals sinus rhythm. The patient has no further discharges. He is complaining of pain and swelling of the right knee and right thigh. CT is ordered. PLAN: To continue IV antibiotics, await his identification and sensitivity. There is Gram-positive cocci in chains and to continue close monitoring of the patient. Erik Raymond MD
[2017-11-05] MEDS: Azithromycin 500MG/NS 250ml 500 MG/250 ML BAG IVPB SCH (11:45)
--- NOTE | 2017-11-05 15:22 | PN ---
DATE: SUBJECTIVE: The patient is still experiencing generalized weakness. He denies any retrosternal chest pain. OBJECTIVE: VITAL SIGNS: Blood pressure 150/79, heart rate 96, temperature 100.1, and respirations 18. HEENT: Pale conjunctivae. CHEST: Minimal basal rhonchi. HEART: S1 and S2, regular. ABDOMEN: Soft. EXTREMITIES: No edema. LABORATORY DATA: Hemoglobin and hematocrit of 9.2 and 27.8, white count 8.0, platelet count 102,000. SMA-7: Sodium 140, potassium 4.4, chloride 110, CO2 of 18. Glucose 168. BUN 32, creatinine 1.2. Chest, abdomen, and pelvic CT scan; no acute findings. Lower extremity CT scan without contrast was a negative study. Two sets of blood cultures are positive for streptococci. ASSESSMENT: 1. Fever and chills, and Streptococcal bacteremia, rule of endocarditis. 2. Cardiomyopathy, status post implantable cardioverter-defibrillator placement. RECOMMENDATIONS: Continue current Coreg 12.5 mg twice a day, Cozaar 25 mg once a day, Rocephin 2 g intravenously daily, Zithromax 500 mg intravenously daily. Case was discussed with Dr. Raymond and with Dr. Marshall, infectious disease specialist, and the patient is scheduled for JANE for Friday as tomorrow, scheduling is not available by the department. Navid Salinas MD
--- NOTE | 2017-11-05 16:53 | CP.PCM.PN ---
Subjective - Date & Time of Evaluation Date of Evaluation: 11/05/17 Time of Evaluation: 10:40 - Subjective Subjective: Still having intermittent pain in the right leg, no fevers overnight, no nausea , still scared that his ICD might fire again. Objective - Vital Signs/Intake and Output Vital Signs (last 24 hours): Temp Pulse Resp BP Pulse Ox 98.7 F 94 H 20 150/90 96 11/05/17 06:00 11/05/17 06:00 11/05/17 06:00 11/05/17 06:00 11/05/17 06:00 Intake and Output: 11/05/17 11/05/17 06:59 18:59 Intake Total 1200 960 Balance 1200 960 - Medications Medications: Current Medications Acetaminophen (Tylenol 325mg Tab) 650 mg PO Q4 PRN PRN Reason: Fever >100.4 F Last Admin: 11/05/17 05:45 Dose: 650 mg Carvedilol (Coreg) 12.5 mg PO BID [facility] Last Admin: 11/04/17 17:17 Dose: 12.5 mg Gabapentin (Neurontin) 300 mg PO BID [facility] PRN Reason: Protocol Last Admin: 11/04/17 17:17 Dose: 300 mg Gabapentin (Neurontin) 600 mg PO HS [facility] PRN Reason: Protocol Last Admin: 11/04/17 21:02 Dose: 600 mg Sodium Chloride (Sodium Chloride 0.9%) 1,000 mls @ 100 mls/hr IV .Q10H [facility] Last Admin: 11/05/17 05:04 Dose: 100 mls/hr Azithromycin (Zithromax 500mg In Ns) 500 mg in 250 mls @ 167 mls/hr IVPB DAILY [facility] PRN Reason: Protocol Last Admin: 11/04/17 09:03 Dose: 167 mls/hr Ceftriaxone Sodium (Rocephin 2 Gm Ivpb) 2 gm in 100 mls @ 100 mls/hr IVPB DAILY [facility] PRN Reason: Protocol Last Admin: 11/04/17 11:15 Dose: 100 mls/hr Ibuprofen (Motrin Tab) 400 mg PO Q6H PRN PRN Reason: Pain, Mild (1-3) Last Admin: 11/04/17 11:22 Dose: 400 mg Insulin Human Regular (Humulin R Low) 0 units SC ACHS [facility] PRN Reason: Protocol Last Admin: 11/04/17 21:48 Dose: 3 units Lorazepam (Ativan) 1 mg PO TID PRN; Protocol PRN Reason: Anxiety Losartan Potassium (Cozaar) 25 mg PO DAILY [facility] Last Admin: 11/04/17 09:02 Dose: 25 mg Ondansetron HCl (Zofran Inj) 4 mg IVP Q4H PRN PRN Reason: Nausea/Vomiting Last Admin: 11/05/17 07:19 Dose: 4 mg Oxycodone/Acetaminophen (Percocet 5/325 Mg Tab) 1 tab PO Q6H PRN PRN Reason: Pain, moderate (4-7) Stop: 11/06/17 18:32 Last Admin: 11/05/17 00:13 Dose: 1 tab Oxycodone/Acetaminophen (Percocet 10/325 Mg Tab) 1 tab PO Q6H PRN PRN Reason: Pain, severe (8-10) Pantoprazole Sodium (Protonix Ec Tab) 40 mg PO DAILY [facility] Last Admin: 11/04/17 09:03 Dose: 40 mg - Labs Labs: 11/05/17 07:50 11/05/17 07:50 PT 12.1 SECONDS (9.4-12.5) 11/05/17 07:50 INR 1.05 (0.93-1.08) 11/05/17 07:50 APTT 35.5 Seconds (25.1-36.5) 11/03/17 12:15 - Constitutional Appears: Non-toxic, Chronically Ill - Head Exam Head Exam: NORMAL INSPECTION - ENT Exam ENT Exam: Mucous Membranes Moist - Neck Exam Neck Exam: absent: Meningismus - Respiratory Exam Respiratory Exam: Decreased Breath Sounds Additional comments: left side AICD in place - Cardiovascular Exam Cardiovascular Exam: +S1, +S2 - GI/Abdominal Exam GI & Abdominal Exam: Soft. absent: Tenderness Assessment and Plan - Assessment and Plan (Free Text) Plan: Assessment Sepsis due to gram positive cocci in chains bacteremia, source to be determined ; should rule out ICD as the source, although the lumbar nerve root block may also be a source morbid obesity with BMI 40 HTN DM cardiomyopathy S/P AICD placement 8 years ago chronic back pain Plan given a dose of IV Daptomycin and will continue Rocephin pending identification and sensitivities of the bacteria in the blood; repeat blood cx are negative so far reviewed 2D echo but there is no specific mention of the valves or ICD - discussed with Dr. Lemos - for JANE tomorrow reviewed CT C/A/P which did not show acute pathology will continue to monitor clinically
[2017-11-06] MEDS: Sodium Chloride 0.9% 1,000 ML IV SCH ×2 (05:15→17:31)
[2017-11-06] MEDS: Oxycodone/Acetaminophen 10/325 mg Tab PO PRN ×3 (06:56→21:08)
[2017-11-06 07:10] LABS: HEMOGLOBIN 10.4 g/dL (14.0-18.0); MEAN CELL VOLUME 61.3 fl (80.0-105.0); MEAN CORPUSCULAR HGB CONC 32.6 g/dl (31.0-37.0); PLATELET COUNT 162 10^3/uL (120.0-450.0); RED CELL DISTRIBUTION WIDTH 17.7 % (11.5-14.5); WHITE BLOOD COUNT 8.1 10^3/ul (4.5-11.0)
[2017-11-06 07:17] LABS: INR 1.03 (0.93-1.08); PROTHROMBIN TIME 11.9 SECONDS (9.4-12.5)
[2017-11-06 07:23] LABS: ALBUMIN 3.7 g/dL (3.0-4.8); ALT/SGPT 39 U/L (7-56); AST/SGOT 29 U/L (17-59); BLOOD UREA NITROGEN 31 mg/dL (7-21); CALCIUM 9.9 mg/dL (8.4-10.5); GFR AFRICAN-AMERICAN > 60; GFR NON-AFRICAN AMERICAN > 60
[2017-11-06] MEDS: Insulin Reg-LOW-Coverage SC SCH ×4 (08:34→22:42)
[2017-11-06] MEDS: cefTRIAXone 2 GM IN NS 2 GM/100 ML BAG IVPB SCH (10:21)
[2017-11-06] MEDS: Pantoprazole 40 mg EC Tab PO SCH (10:21)
[2017-11-06] MEDS: Azithromycin 500MG/NS 250ml 500 MG/250 ML BAG IVPB SCH (10:22)
--- NOTE | 2017-11-06 13:03 | PN ---
DATE: SUBJECTIVE: The patient denies any chest pain, shortness of breath or dizziness. No fever or chills today. PHYSICAL EXAMINATION VITAL SIGNS: Blood pressure 142/82, heart rate 68, temperature 98, respirations 20. HEENT: Normocephalic. CHEST: Minimal basal rhonchi. HEART: S1 and S2 regular. EXTREMITIES: No edema or calf tenderness. LABORATORY DATA: Hemoglobin and hematocrit 10.4 and 31.9. White count and platelet count are within normal limits. Today's SMA-7: Sodium 142, potassium 5, chloride 107, CO2 21. Glucose 204. BUN 31, creatinine 1.2. Blood culture final report is Streptococcus mitis. Repeat blood cultures are negative x 48 hours. ASSESSMENT 1. Rule out bacterial endocarditis. 2. Cardiomyopathy. 3. Chronic low back pain, status post recent nerve block. RECOMMENDATIONS: Continue Coreg 12.5 mg once a day, Cozaar 25 mg once a day, IV Rocephin 2 g daily and Zithromax 500 mg intravenously daily. The patient will be kept n.p.o. after midnight for JANE tomorrow. The procedure and its risks were explained to the patient and his . Navid Salinas MD
--- NOTE | 2017-11-06 13:06 | PN ---
DATE: SUBJECTIVE: A 52-year-old white male admitted in the hospital with sepsis syndrome. Blood culture is positive for strep. ID is pending. CT of the abdomen and chest negative. CT and MRI of the spine negative, status post epidural one day prior to beginning of sepsis syndrome; history of CAD; history of multiple discharges from his defibrillator . OBJECTIVE: The patient is afebrile. Vital signs are stable. LABORATORY DATA: White count is down to 8.1. He still has slightly elevated BUN and creatinine at 31 and 1.2. Blood sugar is elevated at 204. Patient is for JANE in the morning to rule out SBE. PLAN: Is to continue IV antibiotics until identification found. Erik Raymond MD
[2017-11-07] MEDS: Sodium Chloride 0.9% 1,000 ML IV SCH (05:35)
[2017-11-07 05:49] VITALS: O2SAT 95
[2017-11-07 07:09] LABS: HEMOGLOBIN 10.5 g/dL (14.0-18.0); MEAN CELL VOLUME 61.3 fl (80.0-105.0); MEAN CORPUSCULAR HEMOGLOBIN 19.7 pg (25.0-35.0); MEAN CORPUSCULAR HGB CONC 32.2 g/dl (31.0-37.0); PLATELET COUNT 159 10^3/uL (120.0-450.0); RBC 5.32 10^6/uL (3.5-6.1); RED CELL DISTRIBUTION WIDTH 17.6 % (11.5-14.5); WHITE BLOOD COUNT 14.8 10^3/ul (4.5-11.0)
[2017-11-07 07:25] LABS: ALBUMIN 3.4 g/dL (3.0-4.8); ALT/SGPT 37 U/L (7-56); AST/SGOT 32 U/L (17-59); BLOOD UREA NITROGEN 31 mg/dL (7-21); GFR AFRICAN-AMERICAN > 60; GFR NON-AFRICAN AMERICAN 58
[2017-11-07 07:29] LABS: INR 1.12 (0.93-1.08); PROTHROMBIN TIME 12.9 SECONDS (9.4-12.5)
[2017-11-07] MEDS: Insulin Reg-LOW-Coverage SC SCH ×3 (08:43→17:10)
[2017-11-07] MEDS: Pantoprazole 40 mg EC Tab PO SCH (09:11)
[2017-11-07] MEDS: cefTRIAXone 2 GM IN NS 2 GM/100 ML BAG IVPB SCH ×2 (09:11→13:23)
[2017-11-07] MEDS: Azithromycin 500MG/NS 250ml 500 MG/250 ML BAG IVPB SCH ×2 (09:11→15:13)
[2017-11-07] MEDS ORDERED: Propofol 10 mg/ml Inj (20 ML) ONE (10:16)
[2017-11-07] MEDS ORDERED: Lidocaine 2% Inj (20ml) ONE (10:16)
[2017-11-07] MEDS ORDERED: ePHEDrine 50 mg/ml Inj ONE (10:46)
[2017-11-07] MEDS ORDERED: Phenylephrine 10 mg/ml Inj ONE (10:46)
--- NOTE | 2017-11-07 11:42 | CARD ---
APPROVED REPORT EXAM: Transesophageal echocardiogram with color flow Doppler. INDICATION Infection : Rule out subacute bacterial endocarditis Reason For Test : Rule out endocarditis. PROCEDURE After obtaining informed consent, patient underwent transesophageal echo in the Echo Lab. Type of Sedation : Sedation was provided by anesthesiologist. Sedation was achieved with intravenously. Transesophageal probe was inserted and advanced into esophagus without difficulty. The JANE was performed without complications. Throughout the procedure, the blood pressure, pulse oximetry, cardiac rhythm, and rate were monitored. The patient tolerated the procedure without adverse effects. Recovery from conscious sedation was uneventful and vital signs were stable. LEFT VENTRICLE The left ventricle is normal size. There is normal left ventricular wall thickness. Left ventricle systolic function is moderately to severely impaired. There is global hypokinesis of the left ventricle. RIGHT VENTRICLE The right ventricle is normal size. There is normal right ventricular wall thickness. The right ventricular systolic function is normal. ATRIA The left atrium is mildly dilated. AORTIC VALVE The aortic valve is normal in structure. No aortic regurgitation is present. MITRAL VALVE The mitral valve is normal in structure. Mitral regurgitation is trace. <Conclusion> No Aortic or Mitral valvular Vegitation seen A right Atrial 2 X 6 mm vegitation likely related ti the ICD lead
[2017-11-07] MEDS ORDERED: Sodium Chloride 0.9% 1,000 ML IV SCH (11:45)
[2017-11-07] MEDS ORDERED: Enoxaparin 40 mg Syringe SC SCH (16:00)
[2017-11-07] MEDS: Oxycodone/Acetaminophen 10/325 mg Tab PO PRN (16:38)
[2017-11-07 17:27] VITALS: BP 137/78; RESP 20; TEMP 98.1
[2017-11-07 18:52] VITALS: PULSE 110
--- NOTE | 2017-11-07 19:39 | CP.PCM.PN ---
Subjective - Date & Time of Evaluation Date of Evaluation: 11/07/17 Time of Evaluation: 08:40 - Subjective Subjective: No fevers, not in distress, leg pain on the right is a little less. Objective - Vital Signs/Intake and Output Vital Signs (last 24 hours): Temp Pulse Resp BP Pulse Ox 98 F 91 H 18 137/79 96 11/05/17 14:53 11/05/17 14:00 11/05/17 11:34 11/05/17 11:34 11/05/17 06:00 Intake and Output: 11/05/17 11/05/17 06:59 18:59 Intake Total 1200 1880 Balance 1200 1880 - Medications Medications: Current Medications Acetaminophen (Tylenol 325mg Tab) 650 mg PO Q4 PRN PRN Reason: Fever >100.4 F Last Admin: 11/05/17 05:45 Dose: 650 mg Carvedilol (Coreg) 12.5 mg PO BID JONG Last Admin: 11/05/17 10:18 Dose: 12.5 mg Gabapentin (Neurontin) 300 mg PO BID JONG PRN Reason: Protocol Last Admin: 11/05/17 10:15 Dose: 300 mg Gabapentin (Neurontin) 600 mg PO HS JONG PRN Reason: Protocol Last Admin: 11/04/17 21:02 Dose: 600 mg Sodium Chloride (Sodium Chloride 0.9%) 1,000 mls @ 100 mls/hr IV .Q10H JONG Last Admin: 11/05/17 05:04 Dose: 100 mls/hr Azithromycin (Zithromax 500mg In Ns) 500 mg in 250 mls @ 167 mls/hr IVPB DAILY JONG PRN Reason: Protocol Last Admin: 11/05/17 11:45 Dose: 167 mls/hr Ceftriaxone Sodium (Rocephin 2 Gm Ivpb) 2 gm in 100 mls @ 100 mls/hr IVPB DAILY JONG PRN Reason: Protocol Last Admin: 11/05/17 10:19 Dose: 100 mls/hr Ibuprofen (Motrin Tab) 400 mg PO Q6H PRN PRN Reason: Pain, Mild (1-3) Last Admin: 11/05/17 14:53 Dose: 400 mg Insulin Human Regular (Humulin R Low) 0 units SC ACHS JONG PRN Reason: Protocol Last Admin: 11/05/17 12:00 Dose: Not Given Lorazepam (Ativan) 1 mg PO TID PRN; Protocol PRN Reason: Anxiety Losartan Potassium (Cozaar) 25 mg PO DAILY [facility] Last Admin: 11/05/17 10:17 Dose: 25 mg Ondansetron HCl (Zofran Inj) 4 mg IVP Q4H PRN PRN Reason: Nausea/Vomiting Last Admin: 11/05/17 07:19 Dose: 4 mg Oxycodone/Acetaminophen (Percocet 5/325 Mg Tab) 1 tab PO Q6H PRN PRN Reason: Pain, moderate (4-7) Stop: 11/06/17 18:32 Last Admin: 11/05/17 00:13 Dose: 1 tab Oxycodone/Acetaminophen (Percocet 10/325 Mg Tab) 1 tab PO Q6H PRN PRN Reason: Pain, severe (8-10) Last Admin: 11/05/17 10:15 Dose: 1 tab Pantoprazole Sodium (Protonix Ec Tab) 40 mg PO DAILY [facility] Last Admin: 11/05/17 10:17 Dose: 40 mg - Labs Labs: 11/05/17 07:50 11/05/17 07:50 PT 12.1 SECONDS (9.4-12.5) 11/05/17 07:50 INR 1.05 (0.93-1.08) 11/05/17 07:50 APTT 35.5 Seconds (25.1-36.5) 11/03/17 12:15 - Constitutional Appears: Chronically Ill - Head Exam Head Exam: NORMAL INSPECTION - Neck Exam Neck Exam: absent: Meningismus - Respiratory Exam Respiratory Exam: Decreased Breath Sounds - Cardiovascular Exam Cardiovascular Exam: +S1, +S2 - GI/Abdominal Exam GI & Abdominal Exam: Soft. absent: Tenderness Assessment and Plan - Assessment and Plan (Free Text) Plan: Assessment Sepsis due to Strep mitis bacteremia, from endocarditis with ICD lead vegetation on JANE morbid obesity with BMI 40 HTN DM cardiomyopathy S/P AICD placement 8 years ago chronic back pain Plan discussed with Dr. Lemos - continue Junior for at least 6 weeks after AICD lead is removed (with the vegetation); repeat blood cx are negative will need ICD lead removed
--- NOTE | 2017-11-07 20:28 | PN ---
DATE: SUBJECTIVE: Prior to the JANE procedure, the patient was comfortable. He had no shortness of breath or chest pain. PHYSICAL EXAMINATION: VITAL SIGNS: Blood pressure 121/72, heart rate 81, temperature 99, respirations 16. HEENT: Normocephalic. CHEST: Clear. HEART: S1 and S2, regular. ABDOMEN: Soft. EXTREMITIES: No edema. LABORATORY DATA: SMA-7: Sodium 135, potassium 5.4, chloride 103, CO2 23. Glucose 260. BUN 31, creatinine 1.3. Hemoglobin and hematocrit 10.5 and 32.6, white count 14.8, platelet count 159,000. INR is 1.12. JANE was performed and it was noted that the patient has a small linear vegetation in the right atrium of about 6 x 2 mm, most likely related to the ICD lead. There was no valvular vegetation of either in the mitral or the aortic valves. The patient has admitted to me for the first time that he had dental workup a month ago when one of his tooth lost its crown, which was cemented by the dentist. Repeat blood culture was negative . ASSESSMENT: 1. 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 2. Cardiomyopathy. RECOMMENDATIONS: Case was discussed in detail with the Infectious Disease specialist, Dr. Marshall, with the safety investigator, Dr. Mitchell, and with the primary physician, Dr. Raymond. The patient will need to be maintained on full course of IV antibiotics for bacterial endocarditis regarding retrieval of the ICD lead. Dr. Mitchell will discuss the need for that with the original safety investigator. However, at this time, there is no immediate need to proceed with the retrieval for as long as the patient is responding to intravenous antibiotics, which improves the intravenous Rocephin 2 g daily and intravenous Zithromax 500 mg daily. In the meantime, the patient will be resumed on Coreg and Cozaar therapy. I will start subcutaneous Lovenox at 40 mg daily. Navid Salinas MD
[2017-11-08] MEDS ORDERED: Potassium Chloride 10 mEq ER Tab PO SCH (08:00)
== END 2017-11-07 18:54 | disposition home or self-care (01) | DRG 314 ==
LOC: ED 10:35 → ERH 14:26 → ICU 16:23 → 3RSO 11-04 09:18
PROVIDERS: ADMIT Internal Medicine; ATTEND Internal Medicine
PROC: 4B02XTZ Measurement of Cardiac Defibrillator, External Approach (ICD-10-PCS; 2017-11-03)
PROC: B24BZZ4 Ultrasonography of Heart with Aorta, Transesophageal (ICD-10-PCS; principal; 2017-11-07 13:00)
DX: T82.7XXA Infection and inflammatory reaction due to other cardiac and vascular devices, implants and grafts, initial encounter (principal); A40.8 Other streptococcal sepsis; I33.0 Acute and subacute infective endocarditis; I42.0 Dilated cardiomyopathy; I11.0 Hypertensive heart disease with heart failure; E66.01 Morbid (severe) obesity due to excess calories; I50.9 Heart failure, unspecified; Z68.41 Body mass index [BMI] 40.0-44.9, adult; I25.5 Ischemic cardiomyopathy; E11.9 Type 2 diabetes mellitus without complications; D64.9 Anemia, unspecified; G89.29 Other chronic pain; M51.26 Other intervertebral disc displacement, lumbar region; I25.10 Atherosclerotic heart disease of native coronary artery without angina pectoris; G47.33 Obstructive sleep apnea (adult) (pediatric); E78.00 Pure hypercholesterolemia, unspecified; Z79.84 Long term (current) use of oral hypoglycemic drugs; Z98.84 Bariatric surgery status; Y83.8 Other surgical procedures as the cause of abnormal reaction of the patient, or of later complication, without mention of misadventure at the time of the procedure; Y92.009 Unspecified place in unspecified non-institutional (private) residence as the place of occurrence of the external cause